=== PATIENT | female | born 1970 | race Caucasian/White ===

== ENCOUNTER 2016-05-19 19:12 | Inpatient (IN) | payer BC ==
[2016-05-19 20:48] LABS: BASOPHIL 0.3 % (0-2.0); EOSINOPHIL 1.2 % (0-4.5); MCH 34.6 pg (25.7-33.7); MEAN PLT VOLUME 8.1 fl (7.5-11.1); PLATELET COUNT 442 K/MM3 (134-434); WHITE BLOOD COUNT 4.3 K/mm3 (4.0-10.0)
[2016-05-19 21:13] LABS: ALBUMIN 3.8 g/dl (3.4-5.0); BILIRUBIN,TOTAL 0.4 mg/dL (0.2-1.0); CALCIUM 9.2 mg/dL (8.5-10.1); TOT PROT 8.5 g/dl (6.4-8.2)
--- NOTE | 2016-05-19 21:14 | PDOC ---
History of Present Illness - General Chief Complaint: Syncope/Near Syncope Stated Complaint: SYNCOPE Time Seen by Provider: 05/19/16 19:32 History Source: Patient Exam Limitations: No Limitations - History of Present Illness Initial Comments: 05/19/16 21:05 46yo Female patient with metastatic breast-brain CA presents to ED c/o syncope, shortness of breath today. Patient states having cold symptoms and not feeling well. She took Robitussin and was getting ready for bed with she felt "funny" feeling in her stomach and "passed out." She states she fell forward but did not hit her head, and she could hear herself thinking but unsure of what. Prior to this episode patient states she had not been sleeping well, and was given prescription for Ambien from Dr. Pascual (Oncology) which she took last night and slept fine. She denies CP, Abd pain, back pain, fever, cough, congestion, rash, confusion, or any other complaint at this time. ---Dr. Pascual (Oncology) ---Dr. Fuller (Pulmonary) Chem-drugs: IBrance and Letrozole. Past History - Travel Traveled outside of the country in the last 30 days: No Close contact w/someone who was outside of country & ill: No - Past Medical History Allergies/Adverse Reactions: Allergies Allergy/AdvReac Type Severity Reaction Status Date / Time No Known Drug Allergies Allergy Verified 06/08/13 17:11 Home Medications: Ambulatory Orders Anastrozole [Arimidex -] 1 mg PO DAILY 08/24/12 Cholecalciferol (Vitamin D3) [Vitamin D] 400 unit PO DAILY 11/07/12 Metformin HCl [Glucophage] 1,000 mg PO BID 11/07/12 Anemia: No Asthma: No Cancer: Yes (Hx of breast cancer 2008 RIGHT,STAGE 1 LEFT BREAST 2010) Cardiac Disorders: No CVA: No COPD: No CHF: No Dementia: No Diabetes: Yes (05/23) GI Disorders: No Disorders: No HTN: No Hypercholesterolemia: No Liver Disease: No Seizures: No Thyroid Disease: No - Surgical History Abdominal Surgery: No Appendectomy: No Cardiac Surgery: No Cholecystectomy: No Lung Surgery: No Neurologic Surgery: No Orthopedic Surgery: Yes - Immunization History Td Vaccination: Yes Immunization Up to Date: Yes - Psycho/Social/Smoking Cessation Hx Anxiety: No Suicidal Ideation: No Smoking Status: No Smoking History: Unknown if ever smoked Have you smoked in the past 12 months: No Number of Cigarettes Smoked Daily: 0 Cigars Per Day: 0 Information on smoking cessation initiated: No Hx Alcohol Use: No Drug/Substance Use Hx: No Substance Use Type: None Hx Substance Use Treatment: No Review of Systems - Review of Systems Able to Perform ROS?: Yes Is the patient limited Syriac proficient: No Constitutional: No: Chills, Fever Respiratory: Yes: Shortness of Breath. No: Cough, Orthopnea, Stridor, Wheezing , Productive cough, Hemoptysis Cardiac (ROS): Yes: Syncope. No: Chest Pain, Edema, Irregular Heart Rate, Lightheadedness, Palpitations, Chest Tightness ABD/GI: No: Constipated, Diarrhea, Nausea, Poor Appetite, Poor Fluid Intake, Rectal Bleeding, Vomiting, Abdominal cramping, Tarry Stools : No: Burning, Dysuria, Discharge, Frequency, Flank Pain, Hematuria, Pain, Urgency Musculoskeletal: No: Back Pain Integumentary: No: Bruising, Erythema, Rash Neurological: No: Headache, Numbness, Paresthesia, Seizure, Tingling, Tremors, Weakness, Ataxia, Dizziness Psychiatric: Yes: Stressors, Sleep Pattern Change. No: Mood Swings Hematologic/Lymphatic: No: Blood Clots, Easy Bleeding, Easy Bruising All Other Systems: Reviewed and Negative *Physical Exam - Vital Signs Last Vital Signs Temp Pulse Resp BP Pulse Ox 98.8 F 114 H 26 H 125/85 92 L 05/19/16 19:59 05/19/16 19:59 05/19/16 19:59 05/19/16 19:59 05/19/16 19:59 - Physical Exam General Appearance: Yes: Mild Distress, Thin. No: Nourished, Apparent Distress HEENT: positive: EOMI, BRADY, Normal ENT Inspection, Normal Voice, Symmetrical, TMs Normal, Pharynx Normal. negative: Tonsillar Exudate, Tonsillar Erythema, Rhinorrhea, TM Bulging, TM Dull, TM Erythema Neck: positive: Trachea midline, Supple. negative: Stridor, Lymphadenopathy (R) , Lymphadenopathy (L) Respiratory/Chest: positive: Lungs Clear, Decreased Breath Sounds. negative: Chest Tender, Respiratory Distress, Accessory Muscle Use, Labored Respiration, Rapid RR Cardiovascular: positive: Regular Rhythm, Regular Rate. negative: Edema, JVD, Murmur Gastrointestinal/Abdominal: positive: Normal Bowel Sounds, Soft. negative: Increased Bowel Sounds, Guarding, Rebound, Tenderness Musculoskeletal: positive: Normal Inspection. negative: CVA Tenderness Extremity: positive: Normal Capillary Refill, Normal Inspection, Normal Range of Motion. negative: Pedal Edema, Swelling Integumentary: positive: Normal Color, Dry, Warm. negative: Rash, Swelling Neurologic: positive: stage manager II-XII NML intact, Fully Oriented, Alert, Normal Mood/ Affect, Normal Response, Motor Strength 08/14 ED Treatment Course - LABORATORY CBC & Chemistry Diagram: 05/19/16 20:40 05/19/16 20:40 - ADDITIONAL ORDERS Additional order review: 05/19/16 20:40 RBC 3.44 L MCV 102.0 H MCHC 34.0 RDW 17.0 H D MPV 8.1 Neutrophils % 88.0 H D Lymphocytes % 7.4 L D Monocytes % 3.1 L Eosinophils % 1.2 Basophils % 0.3 *DC/Admit/Observation/Transfer Diagnosis at time of Disposition: Pleural effusion, Pericardial effusion, Hypoxia - Discharge Dispostion Condition at time of disposition: Fair Admit: Yes
[2016-05-19] MEDS ORDERED: AZITHROMYCIN IVPB 500 MG in DEXTROSE 5%-WATER - 250 ML IVPB ONE (23:25)
[2016-05-19 23:29] LABS: ARTERIAL BLD GAS O2 SATURATION 90.6 % (90-98.9); ARTERIAL BLOOD GAS BASE EXCESS -0.8 meq/l (-2-2); ARTERIAL BLOOD GAS HCO3 21.8 meq/L (22-26); ARTERIAL BLOOD GAS pH 7.47 (7.35-7.45)
[2016-05-19 23:30] LABS: ALLENS TEST POSITIVE; ART PUNCT SITE LEFT RADIAL; LPM/O2% 21%; METHEMOGLOBIN 1.4 % (0.4-1.5); PT. ON O2? NO; TYPE OF O2 ROOM AIR
[2016-05-19 23:32] LABS: ARTERIAL BLOOD GAS PO2 58.9 mmHg (80-100)
[2016-05-19] MEDS: LEVOFLOXACIN 750 MG IVPB 150 ML IVPB ONE (23:45)
[2016-05-20] MEDS ORDERED: LEVOFLOXACIN 500 MG IVPB 100 ML IVPB ONE (00:06)
[2016-05-20] MEDS ORDERED: LEVOFLOXACIN 750 MG IVPB 150 ML IVPB ONE ×2 (00:08→23:25)
--- NOTE | 2016-05-20 01:00 | PN ---
<Natalya Valdez - Last Filed: 05/20/16 00:59> Teaching Attending Note Name of Resident: Juliana Shaikh <Ludwig Suarez - Last Filed: 05/20/16 04:49> Teaching Attending Note ATTENDING PHYSICIAN STATEMENT I saw and evaluated the patient. I reviewed the resident's note and discussed the case with the resident. I agree with the resident's findings and plan as documented. SUBJECTIVE: 46 year old female presented to ED with complaint of dyspnea, cough , and insomnia which has progressively gotten worse for the past week. Today patient had syncopal episode with LOC for 2 minutes and no head trauma reported. Patient has indwelling chest tube placed for recurrent pleural effusion and reports draining 10cc last week. Patient reported decreased frequency in draining from every 7 days to 10 days. Patient also has history of pericardial effusion which was drained last year and on last evaluation was reported to have no effusions. PMH: Diabetes, breast cancer with metastasis to brain and recurrent pleural effusions with indwelling chest tube, Surgical history: Mastectomy, lymphadenectomy, 2004 PCP: Dr. Nelson Heavy Equipment Diesel Mechanic: Dr. Fuller Primary Hospital: [facility] Oncologist: Dr. Pascual OBJECTIVE: Vital Signs: Last Vital Signs Temp Pulse Resp BP Pulse Ox 98.5 F 113 H 26 H 108/79 98 05/20/16 00:38 05/20/16 02:35 05/20/16 00:38 05/20/16 02:35 05/20/16 02:35 GENERAL: Awake, alert, and fully oriented, in mild distress HEENT: Normocephalic, Thinning of hair. Atraumatic. PERRLA, EOMI. Moist mucosa. No JVD. LUNGS: Left sided chest tube. No distress, speaks full sentences, clear to auscultation bilaterally HEART: Regular rate and rhythm, normal S1 and S2, no murmurs, slight rub, no gallops, peripheral pulses normal and equal bilaterally. ABDOMEN: Soft, nontender, normoactive bowel sounds. No guarding, no rebound. No masses EXTREMITIES: Normal inspection, Normal range of motion, no edema. No clubbing or cyanosis. NEUROLOGICAL: Cranial nerves II through XII grossly intact. Normal speech, normal gait, no focal sensorimotor deficits SKIN: Warm, Dry, normal turgor, erythema of philtrum Labs: CBCD WBC 4.3 K/mm3 (4.0-10.0) 05/19/16 20:40 RBC 3.44 M/mm3 (3.60-5.2) L 05/19/16 20:40 Hgb 11.9 GM/dL (10.7-15.3) 05/19/16 20:40 Hct 35.1 % (32.4-45.2) 05/19/16 20:40 MCV 102.0 fl (80-96) H 05/19/16 20:40 MCHC 34.0 g/dl (32.0-36.0) 05/19/16 20:40 RDW 17.0 % (11.6-15.6) H D 05/19/16 20:40 Plt Count 442 K/MM3 (134-434) H D 05/19/16 20:40 MPV 8.1 fl (7.5-11.1) 05/19/16 20:40 CMP Sodium 138 mmol/L (136-145) 05/19/16 20:40 Potassium 4.2 mmol/L (3.5-5.1) 05/19/16 20:40 Chloride 103 mmol/L (98-107) 05/19/16 20:40 Carbon Dioxide 24 mmol/L (21-32) 05/19/16 20:40 Anion Gap 11 (8-16) 05/19/16 20:40 BUN 18 mg/dL (7-18) D 05/19/16 20:40 Creatinine 1.0 mg/dL (0.55-1.02) D 05/19/16 20:40 Creat Clearance w eGFR 59.96 (>60) 05/19/16 20:40 Calcium 9.2 mg/dL (8.5-10.1) 05/19/16 20:40 Total Bilirubin 0.4 mg/dL (0.2-1.0) 05/19/16 20:40 AST 46 U/L (15-37) H D 05/19/16 20:40 ALT 32 U/L (12-78) D 05/19/16 20:40 Alkaline Phosphatase 91 U/L (45-117) 05/19/16 20:40 Total Protein 8.5 g/dl (6.4-8.2) H 05/19/16 20:40 Albumin 3.8 g/dl (3.4-5.0) 05/19/16 20:[address] Impression: Positive for a combination of infiltrates and atelectasis in the right lower lobe and right middle lobe. There is also a moderate size right pleural effusion. Some of the pleural fluid is higher density than simple transudate and could be complex (infectious/purulent? Less likely hemorrhagic since there is no history of trauma). Some of the fluid is loculated. There is also a moderate sized left pleural effusion with some loculation. There is a chest tube draining this collection. There is infiltrate and atelectasis at the left lung base. There is also a pericardial effusion up to 1.2 cm thick. There is elevation of the right hemidiaphragm. If more recent prior scans can be transmitted, I can perform a comparative interpretation and determine if there has been progression or improvement. Please also correlate with patient history. (History transmitted is "hypoxia".)
[2016-05-20] MEDS ORDERED: AZITHROMYCIN IVPB 250 ML IVPB ONE (01:34)
--- NOTE | 2016-05-20 02:20 | MSN ---
Admitting History and Physical - Primary Care Physician PCP: Dr. Nelson - Admission Chief Complaint: Syncope and SOB History of Present Illness: Pt. is a 46 YO F with PMH of Breast Cancer metastasized to the brain, and DMII, she presented to the ED after a syncopal episode and SOB. The Patient started feeling some "Cold-like" symptoms with a non productive cough earlier in the morning, she was trying to go to bed early after taking a dose of Robitussin, when she got a strange feeling in her stomach. She did not feel nauseous or as though she was having an upset stomach. Shortly after the feeling she felt light headed and fainted in to the bed. She was unconscious for 2 min before she regained conciousness, at which time she felt depressed that her 11 year old daughter saw her "helpless." She has not had anything like this happen to her before. She has had SOB since the beginning of the winter. He currently has a chest tube in her left pleura, that drains "yellowish and occasionally blood-tinged fluid." She denies any CP, weakness, pain, fever, congestion, rash , confusion, NVD, Constp, changes in vision, nor changes in urination. History Source: Patient, Family Member Limitations to Obtaining History: No Limitations - Past Medical History ...LMP: 05/13/09 Heme/Onc: Yes: Cancer (met. 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 [place]. Letrozole. Biotin Family Disease History - Family Disease History Family Disease History: Diabetes: Father Review of Systems - Review of Systems Constitutional: reports: No Symptoms. denies: Chills, Diaphoresis, Fever, Night Sweats, Weakness Eyes: reports: No Symptoms. denies: Blind Spots, Blurred Vision, Double Vision HENT: reports: No Symptoms Neck: reports: No Symptoms Cardiovascular: reports: No Symptoms Respiratory: reports: Cough (nonproductive), SOB (exacerbated by cold) Gastrointestinal: reports: Other (Abdominal discomfort) Genitourinary: reports: No Symptoms Breasts: reports: See HPI, Other (Metastatic Breast CA) Integumentary: reports: No Symptoms Neurological: reports: Syncope Endocrine: reports: No Symptoms Hematology/Lymphatic: reports: No Symptoms Psychiatric: reports: Altered Sleep Pattern, Anxiety, Depression, Panic Physical Examination Vital Signs: Vital Signs Temperature 98.5 F 05/20/16 00:38 Pulse Rate 120 H 05/20/16 00:38 Respiratory Rate 26 H 05/20/16 00:38 Blood Pressure 98/57 05/20/16 00:38 O2 Sat by Pulse Oximetry (%) 95 05/20/16 00:38 Constitutional: Yes: Well Nourished, Anxious, Mild Distress Eyes: Yes: WNL, Conjunctiva Clear, EOM Intact HENT: Yes: WNL, Atraumatic, Normocephalic Cardiovascular: Yes: Tachycardia, S1, S2. No: JVD, Gallop, Murmur, Rub Respiratory: Yes: Diminished (left side), Rales (bilaterally) Gastrointestinal: Yes: WNL, Normal Bowel Sounds, Soft Breast(s): Yes: Other (See HPI) Musculoskeletal: Yes: WNL Extremities: Yes: WNL Edema: No Peripheral Pulses WNL: Yes Integumentary: Yes: WNL Neurological: Yes: WNL, Alert, Oriented ...Motor Strength: WNL Psychiatric: Yes: Alert, Oriented, Other (Possible Depression) Labs: CBC, BMP 05/19/16 20:40 05/19/16 20:40 Assessment/Plan Pt. is a 46 YO F with PMH of Breast Cancer metastasized to the brain, and DMII, she presented to the ED after a syncopal episode and SOB. Syncope/Lightheadedness -CXR-Bilateral Pleural effusion -CT Head -EKG-Tachycardic -IVF-100cc/hr -Cont. O2 venti mask Diabetes -SSI -Hold metformin Possible Depression -Depression Screen -Social Work -Psych consult -Grief Stress Test Technician
--- NOTE | 2016-05-20 04:39 | HP ---
Addendum entered and electronically signed by Juliana Shaikh RES 05/20/16 07 :20: Continue Anastrozole 1mg PO Daily (Home meds) Addendum entered and electronically signed by Juliana Shaikh RES 05/20/16 06 :36: CURB 65 score-0 Addendum entered and electronically signed by Juliana Shaikh RES 05/20/16 06 :30: Calculated PSI Index 75 points Original Note: CHIEF COMPLAINT: passed out and SOB PCP: HISTORY OF PRESENT ILLNESS: 46 year old female presented to the ED via EMS after passing out for almost 2 mins this evening. A/c to the patient, she was on her bed, had dry cough, took Robitussin, then started having funny sensation in her abdomen, couldn't focus her eyes and suddenly she passed out, moved forward and landed on the pillow but didn't hit her head. Never had this before. Patient said she could hear herself breathing while she was unconscious, was thinking her 11 year old daughter would get traumatized to see her in that state and then heard 911 being called. Patient said she has had SOB on/off since early winter and dry cough. Has had pleural effusion since a year due to metastatic breast cancer, a chest tube placed on the left side since a year. Took out 20 cc last week, fluid was yellowish in color. Since the volume is getting smaller, takes the fluid out once in 10days. Also had a h/o pericardial effusion which resolved. Denies chest pain, palpitations, headache, fever, chills, rigors, sweating, abdominal pain, nausea or vomiting. Bowel/Bladder habit normal. Sleep/Appetite normal. PCP:- @ [facility] Dr. Leslie Pascual (Oncology) Dr. 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 PAST SURGICAL HISTORY: Mastectomy, lumpectomy, in 2004, left sided chest tube Social History: Smoking: Never smoked Alcohol: Never took alcohol Drugs: No use of illicit drugs. Family History: Father-DM Allergies No Known Drug Allergies Allergy (Verified 06/08/13 17:11) HOME MEDICATIONS: Home Medications Medication Instructions Recorded Anastrozole [Arimidex -] 1 mg PO DAILY 08/24/12 Cholecalciferol (Vitamin D3) 400 unit PO DAILY 11/07/12 [Vitamin D] Metformin HCl [Glucophage] 1,000 mg PO BID 11/07/12 REVIEW OF SYSTEMS CONSTITUTIONAL: Present: Generalized weakness Absent: fever, chills, diaphoresis, malaise, loss of appetite, weight change HEENT: Absent: rhinorrhea, nasal congestion, throat pain, throat swelling, difficulty swallowing, mouth swelling, ear pain, eye pain, visual changes CARDIOVASCULAR: Absent: chest pain, syncope, palpitations, irregular heart rate, lightheadedness , peripheral edema RESPIRATORY: Present: Cough, shortness of breath, dyspnea with exertion Absent: cough, orthopnea, wheezing, stridor, hemoptysis GASTROINTESTINAL: Absent: abdominal pain, abdominal distension, nausea, vomiting, diarrhea, constipation, melena, hematochezia GENITOURINARY: Absent: dysuria, frequency, urgency, hesitancy, hematuria, flank pain, genital pain MUSCULOSKELETAL: Absent: myalgia, arthralgia, joint swelling, back pain, neck pain SKIN: Absent: rash, itching, pallor HEMATOLOGIC/IMMUNOLOGIC: Absent: easy bleeding, easy bruising, lymphadenopathy, frequent infections ENDOCRINE: Absent: unexplained weight gain, unexplained weight loss, heat intolerance, cold intolerance NEUROLOGIC: Present: Recent Syncope Absent: headache, focal weakness or paresthesias, dizziness, unsteady gait, seizure, mental status changes, bladder or bowel incontinence PSYCHIATRIC: Absent: anxiety, depression, suicidal or homicidal ideation, hallucinations. PHYSICAL EXAMINATION Vital Signs - 24 hr 05/19/16 05/19/16 05/20/16 19:59 21:29 00:38 Temperature 98.8 F 98.5 F Pulse Rate 114 H Pulse Rate [ 120 H Right Radial] Respiratory 26 H 26 H Rate Blood Pressure 125/85 Blood Pressure 98/57 [Left Arm] O2 Sat by Pulse 92 L 92 L 95 Oximetry (%) 05/20/16 02:35 Temperature Pulse Rate Pulse Rate [ 113 H Right Radial] Respiratory Rate Blood Pressure Blood Pressure 108/79 [Left Arm] O2 Sat by Pulse 98 Oximetry (%) GENERAL: Young female lying comfortably in bed, Awake, alert, and fully oriented , in mild respiratory distress. HEAD: Normal with no signs of trauma. EYES:EOM intact, no pallor or icterus. EARS, NOSE, THROAT: Ears normal. Moist mucous membranes. NECK: Normal range of motion, supple without lymphadenopathy, JVD, or masses. LUNGS: Chest tube drainage placed on the left side, area looks clean, no erythema or discharge at the insertion site, Decrease breath sounds bilaterally Right>left; B/L bibasilar crackles, no wheeze. HEART: Regular rate and rhythm, normal S1 and S2 without murmur. ABDOMEN: Soft, nontender, not distended, normoactive bowel sounds, no guarding, no rebound, no masses. No hepatomegaly or splenomegaly. MUSCULOSKELETAL: Normal range of motion at all joints. No bony deformities or tenderness. No CVA tenderness. UPPER EXTREMITIES: 2+ pulses, warm, well-perfused. No cyanosis. No clubbing. No peripheral edema. LOWER EXTREMITIES: 2+ pulses, warm, well-perfused. No calf tenderness. No peripheral edema. NEUROLOGICAL: Cranial nerves II-XII intact. Normal speech. Normal gait. PSYCHIATRIC: Cooperative. Good eye contact. Appropriate mood and affect. SKIN: Warm, dry, normal turgor, no rashes or lesions noted. Laboratory Results - last 24 hr 05/19/16 05/19/16 05/19/16 20:40 20:40 23:14 WBC 4.3 RBC 3.44 L Hgb 11.9 Hct 35.1 MCV 102.0 H MCHC 34.0 RDW 17.0 H D Plt Count 442 H D MPV 8.1 Neutrophils % 88.0 H D Lymphocytes % 7.4 L D Monocytes % 3.1 L Eosinophils % 1.2 Basophils % 0.3 Puncture Site Left radial ABG pH 7.47 H ABG pCO2 at Pt Temp 30.7 L ABG pO2 at Pt Temp 58.9 L ABG HCO3 21.8 L ABG O2 Sat (Measured) 90.6 ABG O2 Content 13.1 L ABG Base Excess -0.8 Soham Test Positive Carboxyhemoglobin 1.5 Methemoglobin 1.4 O2 Delivery Device Room air Oxygen Flow Rate 21% Sodium 138 Potassium 4.2 Chloride 103 Carbon Dioxide 24 Anion Gap 11 BUN 18 D Creatinine 1.0 D Creat Clearance w eGFR 59.96 Random Glucose 164 H Calcium 9.2 Total Bilirubin 0.4 AST 46 H D ALT 32 D Alkaline Phosphatase 91 Total Protein 8.5 H Albumin 3.[address] Impression: Positive for a combination of infiltrates and atelectasis in the right lower lobe and right middle lobe. There is also a moderate size right pleural effusion. Some of the pleural fluid is higher density than simple transudate and could be complex (infectious/purulent? Less likely hemorrhagic since there is no history of trauma). Some of the fluid is loculated. There is also a moderate sized left pleural effusion with some loculation. There is a chest tube draining this collection. There is infiltrate and atelectasis at the left lung base. There is also a pericardial effusion up to 1.2 cm thick. There is elevation of the right hemidiaphragm. ASSESSMENT/PLAN: 46 year old female with past medical history of metastatic breast cancer s/p lumpectomy and mastectomy,recurrent pleural effusions with indwelling chest tube , Diabetes Mellitus presented to the ED via EMS after passing out for almost 2 minutes this evening. # Vasovagal syncope Patient presented with syncope for almost 2 minutes yesterday evening. Patient has a h/o breast cancer mets to brain CT head done, report pending No similar symptoms noted in the ED Neurological exam normal Monitor symptoms If new symptoms appear, would consider neurological consult. # Hypoxic respiratory failure most likely due to HAP. Pleural effusion and pericardial effusion. Has h/o Metastatic breast cancer-s/p lumpectomy and mastectomy Patient has had SOB on/off since early winter, has left sided chest tube placed since a year, gets fluid removed once every 10days, last removal was 20cc last week. On arrival, afebrile, tachycardic 114, hyperventilating to 26, low saturation 92% ABG shows hypoxic/ respiratory alkalosis CT scan showing infiltrate, atelectasis and effusion, CTreport mentioned above Had h/o pericardial effusion which resolved. Was unaware of the new pericardial effusion. Would consider Lasix if SOB worsens Oxygen PRN IV Vancomycin/ IV Zosyn one time dose ordered ID consult placed Pulmonary consult placed Oncology consult placed # Diabetes Mellitus Insulin sliding scale BGM Monitor hypoglycemic episodes # FEN No IV fluids Electrolytes to be repeated Diabetic diet # Prophylaxis For DVT- On Enoxaparin 40sq daily For GI- Not indicated # Code Status- Full code # Dispo: Admitted in Med-Surg. Patient would like to go to [facility] for further treatment as her Pulmonogist/Oncologist are in [facility]. Patient as an insurance from [facility] so she cannot get reimbursement if she gets treatment from other hospitals as per the patient. Called [facility] and spoke to grounds and nursery specialist who suggested ED to ED transfer. Called ED doctor but they said we have to contact Oncology attending. Hence kindly try calling [facility] today or talk with the patient regarding further treatment. Illness, Investigation and Plan of care explained to the patient. She verbalized understanding. Case seen and discussed with Dr. Valdez. Visit type - Emergency Visit Emergency Visit: Yes ED Registration Date: 05/20/16 Care time: The patient presented to the Emergency Department on the above date and was hospitalized for further evaluation of their emergent condition. - New Patient This patient is new to me today: Yes Date on this admission: 05/20/16 - Critical Care Critical Care patient: No
[2016-05-20] MEDS: LEVOFLOXACIN 750 MG IVPB 150 ML IVPB ONE (04:54)
[2016-05-20] MEDS ORDERED: VANCOMYCIN 1,000 MG in DEXTROSE 5%-WATER - 250 ML IVPB ONE (05:21)
[2016-05-20] MEDS ORDERED: PIPERACILLIN/TAZOB 3.375 GM/50 ML PRE-DOCKED IVPB ONE (05:21)
[2016-05-20] MEDS ORDERED: PIPERACILLIN/TAZOB 3.375 GM 50 ML IVPB ONE (06:09)
[2016-05-20] MEDS ORDERED: VANCOMYCIN 1 GRAM (PRE-DOCKED) 250 ML IVPB ONE (06:55)
[2016-05-20 08:04] LABS: BASOPHIL 0.6 % (0-2.0); EOSINOPHIL 0.9 % (0-4.5); MCH 34.3 pg (25.7-33.7); MCHC 33.6 g/dl (32.0-36.0); MEAN PLT VOLUME 7.5 fl (7.5-11.1); NEUTROPHILS 72.2 % (42.8-82.8); PLATELET COUNT 386 K/MM3 (134-434); WHITE BLOOD COUNT 2.5 K/mm3 (4.0-10.0)
[2016-05-20 08:39] LABS: ALBUMIN 3.1 g/dl (3.4-5.0); BILIRUBIN,TOTAL 0.9 mg/dL (0.2-1.0); CALCIUM 8.6 mg/dL (8.5-10.1); MAGNESIUM 2.1 mg/dL (1.8-2.4); PHOSPHOROUS 3.3 mg/dL (2.5-4.9); TOT PROT 7.3 g/dl (6.4-8.2)
[2016-05-20 09:20] LABS: ANISOCYTOSIS 1+; PLATELET ESTIMATE ADEQUATE (NORMAL)
[2016-05-20] MEDS ORDERED: ENOXAPARIN NA (PORCINE) 40 MG/0.4 ML DISP.SYRIN SQ ONE (09:33)
[2016-05-20] MEDS: ENOXAPARIN NA (PORCINE) 40 MG/0.4 ML DISP.SYRIN SQ SCH (09:48)
[2016-05-20] MEDS: CHOLECALCIFEROL (VITAMIN D3) 400 UNIT TABLET (FP) PO SCH (09:48)
[2016-05-20] MEDS ORDERED: ANASTROZOLE 1 MG TABLET PO SCH (10:00)
[2016-05-20] MEDS ORDERED: INSULIN REGULAR HUMAN 100 UNITS/ML *VIAL ONE (10:22)
[2016-05-20] MEDS: INSULIN SLIDING SCALE (NOVOLOG) 1 VIAL SQ SCH ×3 (10:35→22:39)
[2016-05-20 11:44] VITALS: BMI 25.4
--- NOTE | 2016-05-20 13:37 | EKG ---
Test Reason : Blood Pressure : / mmHG Vent. Rate : 115 BPM Atrial Rate : 115 BPM P-R Int : 184 ms QRS Dur : 068 ms QT Int : 304 ms P-R-T Axes : 044 079 110 degrees QTc Int : 420 ms SINUS TACHYCARDIA LOW VOLTAGE QRS NONSPECIFIC T WAVE ABNORMALITY ABNORMAL ECG WHEN COMPARED WITH ECG OF 08-JUN-2013 19:12, RSR' PATTERN IN V1 IS NO LONGER PRESENT MINIMAL CRITERIA FOR INFERIOR INFARCT ARE NO LONGER PRESENT Confirmed by JONAH WILSON MD ([id number]) on 05/20/2016 1:37:07 PM Referred By: Confirmed By:JONAH WILSON MD
--- NOTE | 2016-05-20 14:38 | PN ---
Teaching Attending Note Name of Resident: David Michelle ATTENDING PHYSICIAN STATEMENT I saw and evaluated the patient. I reviewed the resident's note and discussed the case with the resident. I agree with the resident's findings and plan as documented. SUBJECTIVE: no fever or chills, feels SOB with ambulation only, no palpitations , reports feeling weird in her stomach before everything turned black and she passed out in bed . no one witnessed seizure like activity as daughter ran to get help. when she woke up she recognized surrounding . denies any CP , palpitations, or visual changes before the episode . no similar episodes in past OBJECTIVE: Last Vital Signs Temp Pulse Resp BP Pulse Ox 98.9 F 110 H 18 105/68 98 05/20/16 08:05 05/20/16 11:37 05/20/16 11:37 05/20/16 11:37 05/20/16 08:05 NAD , AAOX3 CV: RRR, no MRG Lungs: decreased breath sounds at R base , minimal crackles at L base . L chest tube in pace . Ext: No edema over b/l LE Neuro: no facial droop, EOMI, round equal pupils , reactive to light , uvula at mid line , tongue at mid line strength : 5/5 in upper and lower ext proximally and distally , sensation to light touch intact. reflexes : 2+ knee jerk and biceps b/l . Breast exam: R mastectomy with scarred R breast bed, no LAP in R axilla . L breast with no masses or discharge from nipple . L axilla with surgical scar with no LAP . ASSESSMENT AND PLAN: 46 y/o lady with h/o DM , breast cancer s/p R mastectomy , L lumpectomy ,brain mets s/p gamma knife , recurrent pleural effusions s/p L chest tube, and pericardial effusion ,, who presented with syncopal episode. 1- Syncope, not clear on etiology, vasovagal vs seizure. Arrhythmias still in picture. Although she has pericardial effusion, I don't believe it is the etiology behind that. in the setting of metastatic breast cancer, and h/o brain Mets , need to r/o brain mets ( pt states last MRI in Mar.27 neg ) - check MRI of brain w/wo myrtle - check echo to evaluate actual size of effusion and any signs of tamponade . will check pulsus paradoxus . Bp is stable and she has no JVD - place on tele - check EKG 2- Uncontrolled Dm , only on metformin home.. now GLC in 400s. SSI , hold metformin repeat sugar 3- SOB , hypoxia , resolved . now 98 % on RA. Chest CT scan with R pleural effusion , and atelectasis with scarring in lungs maria teresa right . I wonder if these findings are due to lymphangitic spread of tumor VS scarring from Radiation . no old imaging to review. Pneumonia is low on my list . - hold off abx , pending ID consult - no suspicion for PE at this point 4- Breast cancer s/p R mastectomy , L lumpectomy and MEts to brain s/p gamma knife . Onc consult placed 5- Dispo : [facility]LOC pt requested transfer to [facility], will call transfer center .
--- NOTE | 2016-05-20 15:02 | CON.PULM ---
Consult Consult Specialty:: PULMONARY Referred by:: ANAYELI Reason for Consultation:: HYPOXEMIA/SOB/PLEURAL EFFUSION - History of Present Illness Chief Complaint: SOB/SYNCOPE/PLEUREX LEFT PLEURAL SPACE History of Present Illness: 46yo Female patient with metastatic breast-brain CA presents to ED c/o syncope, shortness of breath today. Patient states having cold symptoms and not feeling well. She took Robitussin and was getting ready for bed with she felt "funny" feeling in her stomach and "passed out." She states she fell forward but did not hit her head. Prior to this episode patient states she had not been sleeping well, and was given prescription for Ambien from Dr. Pascual (Oncology ) which she took the night prior and slept fine. She was re-admitted to [facility] in early April due to pericardial fluid/pleural effusion. 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 No: AFIB, CHF Pulmonary: Yes: O2 Dependent (was told she needed o2 but refused). No: Asthma, COPD Gastrointestinal: No: Cancer Hepatobiliary: No: Cirrhosis Renal/: No: Renal Failure ...LMP: 05/13/09 ...: No Heme/Onc: Yes: Anemia, Current Chemotherapy Infectious Disease: No: AIDS Psych: No: Addictions Musculoskeletal: No: Bursitis Rheumatology: No: Fibromyalgia ENT: No: Allergic Rhinitis Endocrine: Yes: Diabetes Mellitus (type II) - Past Surgical History Past Surgical History: Yes: Breast Biopsy, , Mastectomy - Alcohol/Substance Use Hx Alcohol Use: No History of Substance Use: reports: None. 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 Medications - Allergies Allergies/Adverse Reactions: Allergies Allergy/AdvReac Type Severity Reaction Status Date / Time No Known Drug Allergies Allergy Verified 06/08/13 17:11 - Home Medications Home Medications: Ambulatory Orders Anastrozole [Arimidex -] 1 mg PO DAILY 08/24/12 Cholecalciferol (Vitamin D3) [Vitamin D] 400 unit PO DAILY 11/07/12 Metformin HCl [Glucophage] 1,000 mg PO BID 11/07/12 Family Disease History - Family Disease History Family Disease History: Diabetes: Father Review of Systems - Review of Systems Constitutional: denies: Chills, Fever, Night Sweats Eyes: denies: Blind Spots HENT: denies: Difficult Swallowing Neck: denies: Decreased ROM Cardiovascular: denies: Chest Pain Respiratory: reports: Cough, Exercise Intolerance, SOB on Exertion. denies: Hemoptysis, Wheezing Gastrointestinal: reports: Abdominal Pain (had abd discomfort prior to admission ) Genitourinary: reports: No Symptoms Breasts: denies: Other (mastectomy) Musculoskeletal: reports: No Symptoms Integumentary: reports: No Symptoms Neurological: reports: Syncope Endocrine: reports: No Symptoms Hematology/Lymphatic: reports: No Symptoms Psychiatric: reports: No Symptoms Physical Exam Vital Sings: Vital Signs Temperature 98.1 F 05/20/16 14:32 Pulse Rate 100 H 05/20/16 14:32 Respiratory Rate 18 05/20/16 14:32 Blood Pressure 100/60 05/20/16 14:32 O2 Sat by Pulse Oximetry (%) 96 05/20/16 14:32 Constitutional: Yes: Calm Eyes: Yes: EOM Intact HENT: Yes: Normocephalic Neck: Yes: Trachea Midline Cardiovascular: Yes: Regular Rate and Rhythm Respiratory: Yes: Diminished (bibasilar/left pleurex catheter in place) ...Breath Sounds: LLL Diminished, RLL Diminished ...Inspection: Yes: Other (left mastectomy) Gastrointestinal: Yes: Soft Extremities: No: Calf Tenderness Edema: No Psychiatric: Yes: Alert Labs: CBC, BMP 05/20/16 07:45 05/20/16 07:45 ABG Results ABG pH 7.47 (7.35-7.45) H 05/19/16 23:14 ABG pCO2 at Pt Temp 30.7 mmHg (35-45) L 05/19/16 23:14 ABG pO2 at Pt Temp 58.9 mmHg (80-100) L 05/19/16 23:14 ABG HCO3 21.8 meq/L (22-26) L 05/19/16 23:14 ABG O2 Sat (Measured) 90.6 % (90-98.9) 05/19/16 23:14 ABG O2 Content 13.1 % vol (15-22) L 05/19/16 23:14 ABG Base Excess -0.8 meq/l (-2-2) 05/19/16 23:14 Imaging - Results Chest X-ray: Image Reviewed Cat Scan: Image Reviewed Assessment/Plan RIGHT BREAST CA DXED 2008 S/P MASTECTOMY, CHEMOTX/RT LEFT BREAST CA DXED 2011 S/P LUMPECTOMY,CHEMOTX/RT LEFT BREAST RECURRENCE 2015 WITH PLEURAL/PERICARDIAL EFFUSION/BRAIN METS WITH CERVICAL NODE INVOLVEMENT S/P LEFT PLEUREX PLACED ONLETROZOLE/IBRANCE H/O DM ON METFORMIN ADMITTED WITH ? SYNCOPE FOUND TO HAVE HYPONATREMIA/B/L PLEURAL EFFUSIONS AND EXTENSIVE INFILTRATE WITH AIR-BRONCHOGRAMS ON RIGHT WITH ELEVATED TYLER DIAPHRAGM O2 SUPPLEMENTATION/PANCULTURE/INFLUENZA SWAB/EMPIRIC ANTIBIOTICS/BRONCHODILATORS / CORRECT NA/WILL LIKELY NEED HOME O2 CHECK ECHO/GLYCEMIC CONTROL/INCENTIVE SPIROMETRY WILL FOLLOW/PATIENT IS FOLLOWED AT [facility] WITH ONCO/PULMONARY THANK YOU Lisha LORENZ MD
--- NOTE | 2016-05-20 15:30 | PN ---
Physical Exam: SUBJECTIVE: Patient seen and examined. Feels better than when she came in. had URI symptoms for past few days. Denies chest pain, palpitations, chest pain, difficulty breathing. OBJECTIVE: Vital Signs Period Temp Pulse Resp BP Sys/Siddiqui Pulse Ox Last 24 Hr 98.1 F-98.9 F 100-110 18-24 100-112/60-75 96-98 GENERAL: The patient is awake, alert, and fully oriented, in no acute distress. HEAD: Normal with no signs of trauma. EYES: PERRL, extraocular movements intact, sclera anicteric, conjunctiva clear. No ptosis. ENT: Ears normal, nares patent, oropharynx clear without exudates, moist mucous membranes. no facial asymmetry. NECK: Trachea midline, full range of motion, supple. LUNGS: basilar crackles, diminished breath sounds in right and left lung, no wheezing. Chest tube in place on left lower back, no surrounding erythema, tenderness, discharge. HEART: Regular rate and rhythm, S1, S2 without murmur, rub or gallop. ABDOMEN: Soft, nontender, nondistended, normoactive bowel sounds EXTREMITIES: 2+ pulses, warm, well-perfused, no edema. strength 5/5 in shoulders , biceps, triceps, hand manager shift, hip, knee, ankle. sensation intact throughout. NEUROLOGICAL: Cranial nerves II through XII grossly intact. Normal speech PSYCH: Normal mood, normal affect. SKIN: Warm, dry, normal turgor, no rashes or lesions noted Laboratory Results - last 24 hr 05/20/16 05/20/16 05/20/16 07:45 07:45 14:00 WBC 2.5 L D RBC 2.94 L Hgb 10.1 L D Hct 30.0 L MCV 102.0 H MCHC 33.6 RDW 17.0 H Plt Count 386 MPV 7.5 Neutrophils % 72.2 Lymphocytes % 19.8 D Monocytes % 6.5 D Eosinophils % 0.9 Basophils % 0.6 Platelet Estimate Adequate Anisocytosis 1+ Sodium 129 L Potassium 4.2 Chloride 96 L Carbon Dioxide 24 Anion Gap 9 BUN 10 D Creatinine 1.0 Creat Clearance w eGFR 59.96 Random Glucose 442 H* D Hemoglobin A1c % 7.1 H D Calcium 8.6 Phosphorus 3.3 Magnesium 2.1 Total Bilirubin 0.9 D AST 16 D ALT 22 D Alkaline Phosphatase 73 Total Protein 7.3 Albumin 3.1 L Active Medications Generic Name Dose Route Start Last Admin Trade Name Truongq PRN Reason Stop Dose Admin Cholecalciferol 400 unit 05/20/16 10:00 05/20/16 09:48 Vitamin D3 - PO Not Given DAILY [facility] Enoxaparin Sodium 40 mg 05/20/16 10:00 05/20/16 09:48 Lovenox - SQ 40 mg DAILY WILY Administration Insulin Aspart 1 vial 05/20/16 11:00 05/20/16 10:35 Novolog Vial Sliding Scale - SQ 10 units ACHS WILY Administration Protocol Letrozole 2.5 mg 05/20/16 14:15 Femara - PO DAILY WILY ASSESSMENT/PLAN: 46 year old woman with breast cancer with brain mets s/p gamma knife radiation, right mastectomy, hx of pericardial effusion and bilateral lung effusions, NIDDM , admitted to telemetry for syncopal work-up. - low suspicion for pneumonia, however in the differential given immunosuppression patient may not have fever or elevated white count. and lungs parenchyma changes likely from radiation vs metastatic #Syncope - arrhythmia vs vasovagal vs seizure secondary to brain mets vs infectious cause - as per Marisa Baxter([facility]) patient is known to have a stable pericardial effusion, read as mild in their last imaging study. Read as mild- moderate in [facility] CT. - EKG has low voltage QRS, nonspecific T-wave abnormality with tachycardia(vent rate 115) - continuos cardiac monitoring for arrhythmia - Pulsus paradoxus difference in pressure was 12, inconclusive - MRI with/w/o myrtle for brain masses #Pleural effusion/chest CT findings - patient is to remove chest tube next week, drains 20cc every 10 days. - monitor for any increase in drainage or blood, keep site CDI #NIDDM - uncontrolled - hold metformin, maintain on NISS - ACHS BGM - HBa1c 7.1 #Tachycardia - given low BP, pericadial effusion and persistent tachycardia, hx of chest radiation, on no home anti-hypertensives. will consult cardiology for recommendation - Dr. Cardoza consulted #Hypoxia - resolved, patient comfortable on room air, no complaint of SOB currently #Metastatic Breast Cancer - Dr. Donaldson consulted - letrozole 2.5mg daily - Ibranz daily, patient's own medication #Dispo - patient's primary/onc/pulm care is at [facility]. Attempt overnight was unsuccessful for transfer with [facility]'s pulm fellow. Discussed the case today with Dr. Moore, oncology fellow. She will need to present the case to her attending, unfortunately there are no beds available currently. She will get back to me tomorrow after discussing the case with her attending tomorrow. pager number [phone]. Dvt: lovenox Diet: diabetic diet Visit type - Emergency Visit Emergency Visit: No - New Patient This patient is new to me today: Yes Date on this admission: 05/20/16 - Critical Care Critical Care patient: No - Discharge Referral Referred to [facility] Med P.C.: No
--- NOTE | 2016-05-20 17:39 | CONSULT ---
Consult Consult Specialty:: Infectious diseases Reason for Consultation:: r/o pna,h/o breast cancer pleural fluid - History of Present Illness Chief Complaint: passing out History of Present Illness: 46 year old female with h/o breast ca with mastectomy on the right and lumpectomy on the left admitted to the hospital because of passing out . according to the patient she took robitussin after the meal because she was having cough and then she just passed out denies any other symptoms of tachy fever or feeling of weakness she was recently evaluated by her oncologist and was told everything was fine. 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 No: AFIB, CHF Pulmonary: Yes: O2 Dependent (was told she needed o2 but refused). No: Asthma, COPD Gastrointestinal: No: Cancer Hepatobiliary: No: Cirrhosis Renal/: No: Renal Failure ...LMP: 05/13/09 ...: No Infectious Disease: No: AIDS Psych: No: Addictions Musculoskeletal: No: Bursitis Rheumatology: No: Fibromyalgia ENT: No: Allergic Rhinitis Endocrine: Yes: Diabetes Mellitus (type II) - Past Surgical History Past Surgical History: Yes: Breast Biopsy, , Mastectomy - Alcohol/Substance Use Hx Alcohol Use: No History of Substance Use: reports: None. 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 Medications - Allergies Allergies/Adverse Reactions: Allergies Allergy/AdvReac Type Severity Reaction Status Date / Time No Known Drug Allergies Allergy Verified 06/08/13 17:11 - Home Medications Home Medications: Ambulatory Orders Anastrozole [Arimidex -] 1 mg PO DAILY 08/24/12 Cholecalciferol (Vitamin D3) [Vitamin D] 400 unit PO DAILY 11/07/12 Metformin HCl [Glucophage] 1,000 mg PO BID 11/07/12 Family Disease History - Family Disease History Family Disease History: Diabetes: Father Review of Systems - Review of Systems Constitutional: reports: No Symptoms Eyes: reports: No Symptoms HENT: reports: No Symptoms Neck: reports: No Symptoms Cardiovascular: reports: No Symptoms Respiratory: reports: No Symptoms Gastrointestinal: reports: No Symptoms Genitourinary: reports: No Symptoms Breasts: reports: No Symptoms Reported Musculoskeletal: reports: No Symptoms Integumentary: reports: No Symptoms Neurological: reports: Syncope Endocrine: reports: No Symptoms Hematology/Lymphatic: reports: No Symptoms Physical Exam Vital Signs: Vital Signs Temperature 98.1 F 05/20/16 14:32 Pulse Rate 100 H 05/20/16 14:32 Respiratory Rate 18 05/20/16 14:32 Blood Pressure 100/60 05/20/16 14:32 O2 Sat by Pulse Oximetry (%) 96 05/20/16 14:32 Constitutional: Yes: Well Nourished, No Distress, Calm Eyes: Yes: Conjunctiva Clear HENT: Yes: Atraumatic, Normocephalic Neck: Yes: Supple, Trachea Midline Cardiovascular: Yes: Regular Rate and Rhythm Respiratory: Yes: Regular, Poor Air Entry, Other (crackels both sides pleurex tube on left side) Gastrointestinal: Yes: Normal Bowel Sounds, Soft Breast(s): Yes: Left (no s/o infection), Right (wound well healed,no s/o infection) Neurological: Yes: Alert, Oriented Psychiatric: Yes: Alert Labs: CBC, BMP 05/20/16 07:45 05/20/16 07:45 Imaging - Results Chest X-ray: Report Reviewed, Image Reviewed Cat Scan: Report Reviewed, Image Reviewed Assessment/Plan after evaluating the patinet the patient is very high risk for infection.after looking at the ct scan there are changes noted but i have less suspicion that this is infection,though i cannot rule it out also her wbc has dropped which is a very worrying sign i am going to watch her for today # Vasovagal syncope # Hypoxic respiratory failure Pleural effusion and pericardial effusion. Has h/o Metastatic breast cancer-s/p lumpectomy and mastectomy # Diabetes Mellitus plan will watch the patient very closely if she spikes fever even above 99 start on zosyn also if the wbc does not start coming up will start on abx incentive katty continue to monitor if any fever--send the pleural fluid for culture and sensitivity
[2016-05-20] MEDS: LETROZOLE 2.5 MG TABLET (FP) PO SCH (18:45)
--- NOTE | 2016-05-20 21:52 | CONSULT ---
Consult - text type - Consultation Consultation Note: patient seen and examined 46yo Female patient with metastatic breast-CA with pleural effusions h/o brain mets presents to ED c/o syncope, shortness of breath today. Patient states having cold symptoms and not feeling well. She took Robitussin and was getting ready for bed with she felt "funny" feeling in her stomach and "passed out. Prior to this episode patient states she had not been sleeping well, and was given prescription for Ambien from Dr. Pascual (Oncology) which she took last night and slept fine. She denies CP, Abd pain, back pain, fever, cough, congestion, rash, confusion, or any other complaint at this time. Past History rt. breast cancer 2008--mastectomy lt, reast cancer 2010 - Past Medical History Allergies/Adverse Reactions: Allergies Allergy/AdvReac Type Severity Reaction Status Date / Time No Known Drug Allergies Allergy Verified 06/08/13 17:11 Home Medications: Ambulatory Orders Anastrozole [Arimidex -] 1 mg PO DAILY 08/24/12 Cholecalciferol (Vitamin D3) [Vitamin D] 400 unit PO DAILY 11/07/12 Metformin HCl [Glucophage] 1,000 mg PO BID 11/07/12 - Psycho/Social/Smoking Cessation Hx nonsmoker *Physical Exam - Vital Signs Last Vital Signs Temp Pulse Resp BP Pulse Ox 98.8 F 114 H 26 H 125/85 92 L 05/19/16 19:59 05/19/16 19:59 05/19/16 19:59 05/19/16 19:59 05/19/16 19:59 HEENT: VICKY, EOM Intact Cor: RSR, No murmurs, No gallops Lungs: Clear to P&A Abd: Soft, Normal bowel sounds, No organomegaly Ext:No significant edema Skin: No rashes, Integument intact Abnormal Lab Results 05/20/16 05/21/16 05/21/16 14:00 06:00 06:00 WBC 2.3 L RBC 3.17 L MCV 102.4 H RDW 16.8 H Random Glucose 148 H D Hemoglobin A1c % 7.1 H D A/P 46 y/o with metastatic breast ca on letrozole + ibrance comes in with syncope wbc 2.5 /mild pancytopenia no obvious infection awaiting mri, given h/o brain mets
[2016-05-21] MEDS: INSULIN SLIDING SCALE (NOVOLOG) 1 VIAL SQ SCH ×4 (06:36→22:56)
[2016-05-21 08:28] LABS: BASOPHIL 0.9 % (0-2.0); EOSINOPHIL 1.8 % (0-4.5); MCH 34.7 pg (25.7-33.7); MCHC 33.9 g/dl (32.0-36.0); MEAN CELL VOLUME 102.4 fl (80-96); MEAN PLT VOLUME 7.5 fl (7.5-11.1); NEUTROPHILS 60.5 % (42.8-82.8); PLATELET COUNT 427 K/MM3 (134-434); RDW 16.8 % (11.6-15.6); WHITE BLOOD COUNT 2.3 K/mm3 (4.0-10.0)
[2016-05-21 08:54] LABS: CALCIUM 9.1 mg/dL (8.5-10.1)
--- NOTE | 2016-05-21 08:59 | PN ---
Physical Exam: SUBJECTIVE: Patient seen and examined. Slept well last night. feels comfortable on room air denies palpitation, chest pain, sob, fever, cough, dizziness, lightheadedness. OBJECTIVE: Vital Signs Period Temp Pulse Resp BP Sys/Siddiqui Pulse Ox Last 24 Hr 97.5 F-98.2 F 100-113 18-20 93-117/60-76 96 GENERAL: The patient is awake, alert, and fully oriented, in no acute distress. EYES: PERRL, extraocular movements intact, sclera anicteric, conjunctiva clear. No ptosis. ENT: Ears normal, nares patent, oropharynx clear without exudates, moist mucous membranes. no facial asymmetry. NECK: Trachea midline, full range of motion, supple. LUNGS: Clear to auscultation in right lung, diminished breath sounds left lung, no wheezing. Chest tube in place on left lower back, no surrounding erythema, tenderness, discharge. HEART: Regular rate and rhythm, S1, S2 without murmur, rub or gallop. ABDOMEN: Soft, nontender, nondistended, normoactive bowel sounds EXTREMITIES: 2+ pulses, warm, well-perfused, no edema. 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 sensation intact throughout. NEUROLOGICAL: Cranial nerves II through XII grossly intact. Normal speech PSYCH: Normal mood, normal affect. SKIN: Warm, dry, normal turgor, no rashes or lesions noted Laboratory Results - last 24 hr 05/20/16 05/20/16 05/20/16 07:45 14:00 15:37 WBC RBC Hgb Hct MCV MCHC RDW Plt Count MPV Neutrophils % Lymphocytes % Monocytes % Eosinophils % Basophils % Platelet Estimate Adequate Anisocytosis 1+ POC Glucometer [phone] Hemoglobin A1c % 7.1 H D 05/20/16 05/20/16 05/21/16 18:40 22:38 05:30 WBC RBC Hgb Hct MCV MCHC RDW Plt Count MPV Neutrophils % Lymphocytes % Monocytes % Eosinophils % Basophils % Platelet Estimate Anisocytosis POC Glucometer 194 113 120 Hemoglobin A1c % 05/21/16 06:00 WBC 2.3 L RBC 3.17 L Hgb 11.0 Hct 32.4 MCV 102.4 H MCHC 33.9 RDW 16.8 H Plt Count 427 MPV 7.5 Neutrophils % 60.5 Lymphocytes % 30.1 D Monocytes % 6.7 Eosinophils % 1.8 D Basophils % 0.9 Platelet Estimate Anisocytosis POC Glucometer Hemoglobin A1c % Active Medications Generic Name Dose Route Start Last Admin Trade Name Kelvin PRN Reason Stop Dose Admin Cholecalciferol 400 unit 05/20/16 10:00 05/20/16 09:48 Vitamin D3 - PO Not Given DAILY [facility] Enoxaparin Sodium 40 mg 05/20/16 10:00 05/20/16 09:48 Lovenox - SQ 40 mg DAILY [facility] Administration Insulin Aspart 1 vial 05/20/16 11:00 05/21/16 06:36 Novolog Vial Sliding Scale - SQ Not Given [facility] Protocol Letrozole 2.5 mg 05/20/16 14:15 05/20/16 18:45 Femara - PO Not Given DAILY [facility] Non-Formulary Medication 1 each 05/20/16 18:00 Patient's Own Med PO DAILY [facility] ASSESSMENT/PLAN: 46 year old woman with breast cancer with brain mets s/p gamma knife radiation, right mastectomy, hx of pericardial effusion and bilateral lung effusions, NIDDM , admitted to telemetry for syncopal work-up. #Syncope - arrhythmia vs vasovagal vs seizure secondary to brain mets vs infectious cause - as per Marisa Baxter([facility]) patient is known to have a stable pericardial effusion, read as mild in their last imaging study. Read as mild- moderate in [facility] CT. - continuos cardiac monitoring for arrhythmia - non seen on monitor. - Pulsus paradoxus difference in pressure was 10 today, improved since yesterday - MRI with/w/o myrtle for brain masses: scattered tiny enhancing right and left cerebral foci with probably 2 tiny enhancing lesions in the left cerebellum hihgky suspicious for metastasis. Largest ring-enhancing lesion seen in right frontal lobe. no gross acute infarct or intracranial hemorrhage is seen. - carotid doppler negative for stenosis #Pleural effusion/chest CT findings - patient is to remove chest tube next week, drains 20cc every 10 days. - monitor for any increase in drainage or blood, keep site CDI - observe off antibiotics #NIDDM - uncontrolled - ACHS BGM - HBa1c 7.1 - hold metformin, maintain on NISS #r/o tamponade from pericardial effusion - moderate pericardial effusion 1-2cm on echo, no paradoxical movements/tamponade reported. - Dr. Cardoza consulted #Hypoxia - resolved, patient comfortable on room air, no complaint of SOB currently #Metastatic Breast Cancer - Dr. Donaldson consulted - letrozole 2.5mg daily - Ibranz daily, patient's own medication - pancytopenia, likely side effect of chemotherapy. continue to trend, absolute neutrophil count 1392 #Dispo - patient's primary/onc/pulm care is at [facility]. Discussed the case yesterday with Dr. Moore, oncology fellow. She will need to present the case to her attending, unfortunately there are no beds available currently. have not heard from Dr. Moore today will attempt to reach her tomorrow if patient requires further care. pager number [phone]. Dvt: lovenox Diet: diabetic diet Visit type - Emergency Visit Emergency Visit: No - New Patient This patient is new to me today: No - Critical Care Critical Care patient: No - Discharge Referral Referred to [facility] Med P.C.: No
[2016-05-21] MEDS ORDERED: PT OWN MED DRAWER 7, Y5N ONE (09:23)
[2016-05-21] MEDS: CHOLECALCIFEROL (VITAMIN D3) 400 UNIT TABLET (FP) PO SCH (09:43)
[2016-05-21] MEDS: ENOXAPARIN NA (PORCINE) 40 MG/0.4 ML DISP.SYRIN SQ SCH (09:43)
[2016-05-21] MEDS: LETROZOLE 2.5 MG TABLET (FP) PO SCH (09:49)
--- NOTE | 2016-05-21 12:03 | PN ---
Progress Note, Physician History of Present Illness: PULMONARY ALERT,FEELING BETTER,LESS DYSPNEIC - Current Medication List Current Medications: Active Medications Cholecalciferol (Vitamin D3 -) 400 unit PO DAILY [facility] Last Admin: 05/21/16 09:43 Dose: 400 unit Enoxaparin Sodium (Lovenox -) 40 mg SQ DAILY [facility] Last Admin: 05/21/16 09:43 Dose: 40 mg Insulin Aspart (Novolog Vial Sliding Scale -) 1 vial SQ ACHS [facility] PRN Reason: Protocol Last Admin: 05/21/16 11:50 Dose: Not Given Letrozole (Femara -) 2.5 mg PO DAILY [facility] Last Admin: 05/21/16 09:49 Dose: 2.5 mg Non-Formulary Medication (Patient's Own Med) 1 each PO DAILY [facility] - Objective Vital Signs: Vital Signs Temperature 97.5 F L 05/21/16 00:00 Pulse Rate 107 H 05/21/16 05:58 Respiratory Rate 20 05/21/16 05:58 Blood Pressure 106/70 05/21/16 05:58 O2 Sat by Pulse Oximetry (%) 96 05/20/16 14:32 Constitutional: Yes: Well Nourished, Calm Eyes: Yes: WNL HENT: Yes: WNL Neck: Yes: WNL Cardiovascular: Yes: Regular Rate and Rhythm, S1, S2 Respiratory: Yes: CTA Bilaterally Gastrointestinal: Yes: WNL Extremities: Yes: WNL Edema: No Labs: CBC, BMP 05/21/16 06:00 05/21/16 06:00 Problem List - Problems (1) Breast CA Code(s): C50.919 - MALIGNANT NEOPLASM OF UNSP SITE OF UNSPECIFIED FEMALE BREAST (2) Pleural effusion Code(s): J90 - PLEURAL EFFUSION, NOT ELSEWHERE CLASSIFIED (3) Hypoxemia Code(s): R09.02 - HYPOXEMIA (4) Shortness of breath Code(s): R06.02 - SHORTNESS OF BREATH (5) Diabetes Code(s): E11.9 - TYPE 2 DIABETES MELLITUS WITHOUT COMPLICATIONS Assessment/Plan Assessment/Plan RIGHT BREAST CA DXED 2008 S/P MASTECTOMY, CHEMOTX/RT LEFT BREAST CA DXED 2011 S/P LUMPECTOMY,CHEMOTX/RT LEFT BREAST RECURRENCE 2016 WITH PLEURAL/PERICARDIAL EFFUSION/BRAIN METS WITH CERVICAL NODE INVOLVEMENT S/P LEFT PLEUREX PLACED ONLETROZOLE/IBRANCE H/O DM ON METFORMIN ? SYNCOPE HYPONATREMIA IMPROVED B/L PLEURAL EFFUSIONS AND EXTENSIVE INFILTRATE WITH AIR-BRONCHOGRAMS ON RIGHT WITH ELEVATED TYLER DIAPHRAGM O2 SUPPLEMENTATION ANTIBIOTICS PER ID BRONCHODILATORS GLYCEMIC CONTROL INCENTIVE SPIROMETRY MONITOR BHARATI,PATITO MARIA
--- NOTE | 2016-05-21 12:52 | PN ---
Teaching Attending Note Name of Resident: David Michelle ATTENDING PHYSICIAN STATEMENT I saw and evaluated the patient. I reviewed the resident's note and discussed the case with the resident. I agree with the resident's findings and plan as documented. SUBJECTIVE: no fever or chills, no abd pain , no fever or chills, slept well , chronic non productive cough. not changed from before . OBJECTIVE: NAD , AAOX3 CV: RRR, no MRG Lungs: decreased breath sounds at R base . L chest tube in pace . Ext: No edema over b/l LE ASSESSMENT AND PLAN: 46 y/o lady with h/o DM , breast cancer s/p R mastectomy , L lumpectomy ,brain mets s/p gamma knife , recurrent pleural effusions s/p L chest tube, and pericardial effusion ,, who presented with syncopal episode. 1- Syncope, not clear etiology, vasovagal vs seizure. - MRI of brain w/wo myrtle pending - echo with no signs of tamponade . pulsus paradoxus 10 todya - cont tele , no events overnight 2- DM , improved GLC . cont SSI 3- SOB , hypoxia , resolved . now on RA - hold off abx . appreciate ID help - has pleurex in L side 4- Breast cancer s/p R mastectomy , L lumpectomy and MEts to brain s/p gamma knife . Onc consult 5- Dispo : HLOC
--- NOTE | 2016-05-21 23:18 | PN ---
Progress Note (short form) - Note Progress Note: Patient seen and exaomed Last Vital Signs Temp Pulse Resp BP Pulse Ox 98.2 F 75 20 110/71 95 05/21/16 18:00 05/21/16 18:00 05/21/16 18:00 05/21/16 18:00 05/21/16 08:00 HEENT: VICKY, EOM Intact Cor: RSR, No murmurs, No gallops Lungs: Clear to P&A Abd: Soft, Normal bowel sounds, No organomegaly Ext:No significant edema Skin: No rashes, Integument intact Abnormal Lab Results 05/21/16 05/21/16 06:00 06:00 WBC 2.3 L RBC 3.17 L MCV 102.4 H RDW 16.8 H Random Glucose 148 H D Current Medications Cholecalciferol (Vitamin D3 -) 400 unit PO DAILY [facility] Last Admin: 05/21/16 09:43 Dose: 400 unit Enoxaparin Sodium (Lovenox -) 40 mg SQ DAILY [facility] Last Admin: 05/21/16 09:43 Dose: 40 mg Insulin Aspart (Novolog Vial Sliding Scale -) 1 vial SQ ACHS [facility] PRN Reason: Protocol Last Admin: 05/21/16 22:56 Dose: Not Given Letrozole (Femara -) 2.5 mg PO DAILY [facility] Last Admin: 05/21/16 09:49 Dose: 2.5 mg Non-Formulary Medication (Patient's Own Med) 1 each PO DAILY [facility] A/P 46 y/o with metastatic breast ca with h/o brain mets s/p SRS, pleural effusions.on letrozole + ibrance comes in with syncope wbc 2.3 /mild pancytopenia no obvious infection MRI --2 new lt. cerebellar hypodensities and 1 rt. frontal will consult pleural effusions--lt. chest wall catherter--needs removal per IR at [facility]-- scheduled tomorrow monitor CBC f/iu with primary oncologist--dr. oliver
[2016-05-22] MEDS: INSULIN SLIDING SCALE (NOVOLOG) 1 VIAL SQ SCH ×4 (06:23→21:44)
[2016-05-22 07:08] LABS: MCH 34.5 pg (25.7-33.7); MCHC 33.4 g/dl (32.0-36.0); MEAN CELL VOLUME 103.3 fl (80-96); PLATELET COUNT 406 K/MM3 (134-434); RDW 16.8 % (11.6-15.6)
[2016-05-22 07:12] LABS: WHITE BLOOD COUNT 1.8 K/mm3 (4.0-10.0)
--- NOTE | 2016-05-22 08:31 | PN ---
Physical Exam: SUBJECTIVE: Patient seen and examined Feels okay, was not able to sleep well last night, fell asleep around 2am due to noisy neighbhor. Would like to be discharged today, she has an appointment with her dr to remove the chest tube today at 12pm. Denies repeat episodes of syncope, chest pain, palpitations, sob, fever, changes in vision, abdominal pain, cough. OBJECTIVE: Vital Signs Period Temp Pulse Resp BP Sys/Siddiqui Pulse Ox Last 24 Hr 97.9 F-98.2 F 73-112 18-20 103-116/53-74 91 GENERAL: The patient is awake, alert, and fully oriented, in no acute distress. EYES: PERRL, extraocular movements intact, sclera anicteric, conjunctiva clear. no conjuctival palor No ptosis. ENT: Ears normal, nares patent, oropharynx clear without exudates, moist mucous membranes. no facial asymmetry. NECK: Trachea midline, full range of motion, supple. LUNGS: right lung with fine basilar crackles, diminished breath sounds left lung , no wheezing. Chest tube in place on left lower back, no surrounding erythema, tenderness, discharge. HEART: tachycardia (rate 108), regular rhythm S1, S2 without murmur, rub or gallop. ABDOMEN: Soft, nontender, nondistended, normoactive bowel sounds EXTREMITIES: 2+ pulses, warm, well-perfused, no edema. strength 5/5 in shoulders , biceps, triceps, hand anesthesia attending, hip, knee, ankle. sensation intact throughout. NEUROLOGICAL: Cranial nerves II through XII grossly intact. Normal speech PSYCH: Normal mood, normal affect. SKIN: Warm, dry, normal turgor, no rashes or lesions noted Laboratory Results - last 24 hr 05/21/16 05/21/16 05/21/16 06:00 06:00 11:36 WBC 2.3 L RBC 3.17 L Hgb 11.0 Hct 32.4 MCV 102.4 H MCHC 33.9 RDW 16.8 H Plt Count 427 MPV 7.5 Neutrophils % 60.5 Lymphocytes % 30.1 D Monocytes % 6.7 Eosinophils % 1.8 D Basophils % 0.9 Sodium 138 Potassium 4.5 Chloride 103 Carbon Dioxide 26 Anion Gap 9 BUN 14 D Creatinine 1.0 POC Glucometer 112 Random Glucose 148 H D Calcium 9.1 05/21/16 05/21/16 05/22/16 17:11 22:55 05:35 WBC 1.8 L RBC 3.22 L Hgb 11.1 Hct 33.2 MCV 103.3 H MCHC 33.4 RDW 16.8 H Plt Count 406 MPV 8.0 Neutrophils % Y Lymphocytes % Y Monocytes % Eosinophils % Basophils % Sodium Potassium Chloride Carbon Dioxide Anion Gap BUN Creatinine POC Glucometer 110 120 Random Glucose Calcium 05/22/16 06:01 WBC RBC Hgb Hct MCV MCHC RDW Plt Count MPV Neutrophils % Lymphocytes % Monocytes % Eosinophils % Basophils % Sodium Potassium Chloride Carbon Dioxide Anion Gap BUN Creatinine POC Glucometer 125 Random Glucose Calcium Active Medications Generic Name Dose Route Start Last Admin Trade Name Freq PRN Reason Stop Dose Admin Cholecalciferol 400 unit 05/20/16 10:00 05/21/16 09:43 Vitamin D3 - PO 400 unit DAILY [facility] Administration Enoxaparin Sodium 40 mg 05/20/16 10:00 05/21/16 09:43 Lovenox - SQ 40 mg DAILY [facility] Administration Piperacillin Sod/Tazobactam 50 mls @ 100 mls/hr 05/22/16 07:25 Sod 3.375 gm/ Dextrose IVPB 05/22/16 07:54 ONCE ONE Protocol Insulin Aspart 1 vial 05/20/16 11:00 05/22/16 06:23 Novolog Vial Sliding Scale - SQ Not Given ACHS [facility] Protocol Letrozole 2.5 mg 05/20/16 14:15 05/21/16 09:49 Femara - PO 2.5 mg DAILY [facility] Administration Non-Formulary Medication 1 each 05/20/16 18:00 Patient's Own Med PO DAILY [facility] ASSESSMENT/PLAN: 46 year old woman with breast cancer with brain mets s/p gamma knife radiation, right mastectomy, hx of pericardial effusion and bilateral lung effusions, NIDDM , admitted to telemetry for syncopal work-up. #Metastatic Breast Cancer - MRI with&w/o contrast showing enhancing lesions, Dr. Cuba (her neurosurgeon) consulted for further evaluation/treatment options. - Dr. Donaldson consulted - letrozole 2.5mg daily, patient's own medication - Ibranz daily, patient's own medication #Pancytopenia, likely side effect of chemotherapy - absolute neutrophil count 1008 today, started on zosyn today given low count. - continue to trend, recommendations provided by Dr. Wolff to discontinue Ibranz - u/a negative, bld cx pending #Syncope - vasovagal vs seizure secondary to brain mets - as per Marisa Baxter([facility]) patient is known to have a stable pericardial effusion, read as mild in their last imaging study. Read as mild- moderate in [facility] CT - continuos cardiac monitoring for arrhythmia - non seen on monitor, unlikely to be arrhythmia - MRI with/w/o myrtle for brain masses: scattered tiny enhancing right and left cerebral foci with probably 2 tiny enhancing lesions in the left cerebellum highly suspicious for metastasis. Largest ring-enhancing lesion seen in right frontal lobe. no gross acute infarct or intracranial hemorrhage is seen. - carotid doppler negative for stenosis #Pleural effusion/chest CT findings - monitor for any increase in drainage or blood, keep site CDI - patient will reschedule appointment with physician to tube change #NIDDM - controlled, BGM <200, has not required ISS coverage - [facility] BGM - HBa1c 7.1 - hold metformin, maintain on NISS #pericardial effusion - moderate pericardial effusion 1-2cm on echo, no paradoxical movements/tamponade reported. - as per Dr. Maynard, no indication to drain effusion #Hypoxia - resolved, patient comfortable on room air, no complaint of SOB currently #Dispo - patient's primary/onc/pulm care is at [facility]. case discussed Dr. Moore pager number [phone] on 05/20, oncology fellow, aware of case, has not called [facility] regardin transfer, patient was amenable to remaining here. pending 's recommendations for treatment, may require transfer to [facility]. Dvt: lovenox Diet: diabetic diet Visit type - Emergency Visit Emergency Visit: No - New Patient This patient is new to me today: No - Critical Care Critical Care patient: No - Discharge Referral Referred to [facility] Med P.C.: No
[2016-05-22 08:33] LABS: PLATELET ESTIMATE ADEQUATE (NORMAL)
[2016-05-22] MEDS ORDERED: PT OWN MED DRAWER 7, Y5N ONE (08:54)
[2016-05-22] MEDS: LETROZOLE 2.5 MG TABLET (FP) PO SCH (09:23)
[2016-05-22] MEDS: ENOXAPARIN NA (PORCINE) 40 MG/0.4 ML DISP.SYRIN SQ SCH (09:23)
[2016-05-22] MEDS: CHOLECALCIFEROL (VITAMIN D3) 400 UNIT TABLET (FP) PO SCH (09:24)
[2016-05-22] MEDS ORDERED: PIPERACILLIN/TAZOB 3.375 GM 50 ML IVPB ONE (10:00)
--- NOTE | 2016-05-22 12:33 | PN ---
Progress Note, Physician History of Present Illness: PULMONARY ALERT,FEELING BETTER,-CP,-SOB - Current Medication List Current Medications: Active Medications Cholecalciferol (Vitamin D3 -) 400 unit PO DAILY [facility] Last Admin: 05/22/16 09:24 Dose: Not Given Enoxaparin Sodium (Lovenox -) 40 mg SQ DAILY [facility] Last Admin: 05/22/16 09:23 Dose: Not Given Insulin Aspart (Novolog Vial Sliding Scale -) 1 vial SQ ACHS [facility] PRN Reason: Protocol Last Admin: 05/22/16 11:58 Dose: Not Given Letrozole (Femara -) 2.5 mg PO DAILY [facility] Last Admin: 05/22/16 09:23 Dose: Not Given Non-Formulary Medication (Patient's Own Med) 1 each PO DAILY [facility] - Objective Vital Signs: Vital Signs Temperature 97.0 F L 05/22/16 10:00 Pulse Rate 108 H 05/22/16 10:00 Respiratory Rate 18 05/22/16 10:00 Blood Pressure 107/76 05/22/16 10:00 O2 Sat by Pulse Oximetry (%) 91 L 05/21/16 22:12 Constitutional: Yes: Well Nourished, Calm Eyes: Yes: WNL HENT: Yes: WNL Neck: Yes: WNL Cardiovascular: Yes: Regular Rate and Rhythm, S1, S2 Respiratory: Yes: Diminished Gastrointestinal: Yes: WNL Extremities: Yes: WNL Edema: No Labs: CBC, BMP 05/22/16 05:35 - ....Imaging MRI: Report Reviewed (+ BUILDING TECH METS) Problem List - Problems (1) Breast CA Code(s): C50.919 - MALIGNANT NEOPLASM OF UNSP SITE OF UNSPECIFIED FEMALE BREAST (2) Pleural effusion Code(s): J90 - PLEURAL EFFUSION, NOT ELSEWHERE CLASSIFIED (3) Hypoxemia Code(s): R09.02 - HYPOXEMIA (4) Shortness of breath Code(s): R06.02 - SHORTNESS OF BREATH (5) Diabetes Code(s): E11.9 - TYPE 2 DIABETES MELLITUS WITHOUT COMPLICATIONS Assessment/Plan Assessment/Plan RIGHT BREAST CA DXED 2008 S/P MASTECTOMY, CHEMOTX/RT LEFT BREAST CA DXED 2011 S/P LUMPECTOMY,CHEMOTX/RT LEFT BREAST RECURRENCE 2016 WITH PLEURAL/PERICARDIAL EFFUSION/BRAIN METS WITH CERVICAL NODE INVOLVEMENT S/P LEFT PLEUREX PLACED ON LETROZOLE/IBRANCE H/O DM ON METFORMIN ? SYNCOPE HYPONATREMIA IMPROVED B/L PLEURAL EFFUSIONS AND EXTENSIVE INFILTRATE WITH AIR-BRONCHOGRAMS ON RIGHT WITH ELEVATED TYLER DIAPHRAGM O2 SUPPLEMENTATION ANTIBIOTICS PER ID BRONCHODILATORS GLYCEMIC CONTROL INCENTIVE SPIROMETRY MONITOR LYTES,CBC PER ONCOLOGY NEURO SURGERY EVAL ? RT DR MARIA
--- NOTE | 2016-05-22 13:38 | PN ---
Teaching Attending Note Name of Resident: David Michelle ATTENDING PHYSICIAN STATEMENT I saw and evaluated the patient. I reviewed the resident's note and discussed the case with the resident. I agree with the resident's findings and plan as documented. SUBJECTIVE: No fever or chills, no abd pain, did not sleep last night . dry cough OBJECTIVE: NAD , AAOX3 CV: RRR, no MRG Lungs: decreased breath sounds at R base . L chest tube in pace . Ext: No edema over b/l LE ASSESSMENT AND PLAN: 46 y/o lady with h/o DM , breast cancer s/p R mastectomy , L lumpectomy ,brain mets s/p gamma knife , recurrent pleural effusions s/p L chest tube, and pericardial effusion ,, who presented with syncopal episode. 1- Syncope, not clear etiology, vasovagal vs seizure. - MRI of brain w/wo myrtle showed small lesions , biggest in R frontal 8 mm - echo with no signs of tamponade . ASked Dr. Maynard to review - cont tele , no events. CUS reviewed. - no further w/u for syncope 2- Breast cancer s/p R mastectomy , L lumpectomy and MEts to brain s/p gamma knife . - pt had brain mets before , last MRI in with small stable Mets. Dr. Bereket de souza is appreciated. will follow for further Recs 3- SOB , hypoxia , resolved . now on RA - no convincing clinical signs of PNA . but neutropeniais worsening - follow blood cx - gave one dose of zosyn, will D/W ID 4- neutropenia : ANC 1008 today . not clear if due to chemo VS occult infection - Follow blood cx - Send UA , if pyuria will send urine cx - monitor WBC 5- Dispo : HLOC
--- NOTE | 2016-05-22 15:00 | PN ---
Progress Note (short form) - Note Progress Note: NEUROSURGERY Pt well known to me Seen earlier this am Admitted with syncopal episode S/p gamma knife for multiple intracranial mets several months ago PE: General- looks well CV- RRR; Lungs- CTA B; Abd- benign; Ext- no sign of DVT NEURO- A/A/Ox4 CN- intact; Motor- 5/5 without drift; Sensation- intact; DTR- 1+ Gait- stable MRI brain- R medial high frontal 5 mm; R posterior occipital 5 mm, and L anterior frontal GW junction 6 mm enhancing lesion with mild edema WBC 1.6; hgb 11.4 Breast CA met Responded well to gamma knife previously with almost near complete resolution Still with Karnosfy's of > 80-90 Care d/w rad onc and pt; will coordinate with med onc Would consider further gamma knife boosts vs whole brain XRT (though may not wish to stop chemo for whole brain in which case gamma knife would be preferred) D/w Dr Palafox
[2016-05-22 15:17] LABS: URINE APPEARANCE CLEAR; URINE BILIRUBIN NEGATIVE (NEGATIVE); URINE BLOOD NEGATIVE (NEGATIVE); URINE COLOR YELLOW; URINE GLUCOSE (UA) NEGATIVE (NEGATIVE); URINE KETONE NEGATIVE (NEGATIVE); URINE LEUK ESTERASE NEGATIVE (NEGATIVE); URINE NITRITE NEGATIVE (NEGATIVE); URINE PROTEIN NEGATIVE (NEGATIVE); URINE UROBILINOGEN NEGATIVE E.U./dl (0.2-1.0)
--- NOTE | 2016-05-22 16:18 | PN ---
Progress Note, Physician History of Present Illness: patient stable wbc has dropped down - Current Medication List Current Medications: Active Medications Cholecalciferol (Vitamin D3 -) 400 unit PO DAILY [facility] Last Admin: 05/22/16 09:24 Dose: Not Given Enoxaparin Sodium (Lovenox -) 40 mg SQ DAILY [facility] Last Admin: 05/22/16 09:23 Dose: Not Given Insulin Aspart (Novolog Vial Sliding Scale -) 1 vial SQ ACHS [facility] PRN Reason: Protocol Last Admin: 05/22/16 11:58 Dose: Not Given Letrozole (Femara -) 2.5 mg PO DAILY [facility] Last Admin: 05/22/16 09:23 Dose: Not Given Non-Formulary Medication (Patient's Own Med) 1 each PO DAILY [facility] - Objective Vital Signs: Vital Signs Temperature 97.4 F L 05/22/16 14:25 Pulse Rate 104 H 05/22/16 14:25 Respiratory Rate 18 05/22/16 14:25 Blood Pressure 106/70 05/22/16 14:25 O2 Sat by Pulse Oximetry (%) 92 L 05/22/16 10:00 Constitutional: Yes: No Distress, Calm Eyes: Yes: Conjunctiva Clear Cardiovascular: Yes: Regular Rate and Rhythm Respiratory: Yes: Regular, Poor Air Entry Gastrointestinal: Yes: Normal Bowel Sounds, Soft Musculoskeletal: Yes: WNL Extremities: Yes: WNL Integumentary: Yes: WNL Neurological: Yes: Alert, Oriented Psychiatric: Yes: Alert Labs: CBC, BMP 05/22/16 05:35 05/21/16 06:00 - ....Imaging MRI: Report Reviewed, Image Reviewed Assessment/Plan # Vasovagal syncope # Hypoxic respiratory failure Pleural effusion and pericardial effusion. Has h/o Metastatic breast cancer-s/p lumpectomy and mastectomy # Diabetes Mellitus neutropenia lung infiltrate plan will start patient on zosyn will keep her on for 24 hours at least will check wbc tomorrow and decide
--- NOTE | 2016-05-22 16:19 | CON.CARD ---
Consult Consult Specialty:: Cardiology Referred by:: Hospitalist Medicine Reason for Consultation:: Pericardial effusion - History of Present Illness Chief Complaint: Syncope History of Present Illness: 46yo Female patient with metastatic breast-brain CA with pleural effusions h/o brain mets presented to ED c/o syncope, shortness of breath, she was hospitalized in [facility] in early April for pericardial fluid/pleural effusion post drainage. Echo showed showed small circumferential effusion with preserved LV fxn. 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 No: AFIB, CHF Pulmonary: Yes: O2 Dependent (was told she needed o2 but refused). No: Asthma, COPD Gastrointestinal: No: Cancer Hepatobiliary: No: Cirrhosis Renal/: No: Renal Failure ...LMP: 05/13/09 ...: No Infectious Disease: No: AIDS Psych: No: Addictions Musculoskeletal: No: Bursitis Rheumatology: No: Fibromyalgia ENT: No: Allergic Rhinitis Endocrine: Yes: Diabetes Mellitus (type II) - Past Surgical History Past Surgical History: Yes: Breast Biopsy, , Mastectomy - Alcohol/Substance Use Hx Alcohol Use: No History of Substance Use: reports: None. 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 Medications - Allergies Allergies/Adverse Reactions: Allergies Allergy/AdvReac Type Severity Reaction Status Date / Time No Known Drug Allergies Allergy Verified 06/08/13 17:11 - Home Medications Home Medications: Ambulatory Orders Anastrozole [Arimidex -] 08/24/12 Cholecalciferol (Vitamin D3) [Vitamin D] 2,000 unit PO DAILY 11/07/12 Metformin HCl [Glucophage] 500 mg PO DAILY 11/07/12 Biotin DAILY 05/22/16 Letrozole [Femara -] 2.5 mg PO DAILY 05/22/16 Palbociclib [Ibrance] 125 mg PO DAILY 05/22/16 Family Disease History - Family Disease History Family Disease History: Diabetes: Father Review of Systems - Review of Systems Cardiovascular: reports: Shortness of Breath Neurological: reports: Syncope Vital Signs: Vital Signs Temperature 97.4 F L 05/22/16 14:25 Pulse Rate 104 H 05/22/16 14:25 Respiratory Rate 18 05/22/16 14:25 Blood Pressure 106/70 05/22/16 14:25 O2 Sat by Pulse Oximetry (%) 92 L 05/22/16 10:00 Constitutional: Yes: No Distress, Calm Neck: Yes: Supple Respiratory: Yes: Regular, Diminished Gastrointestinal: Yes: Normal Bowel Sounds, Soft Cardiovascular: Yes: Regular Rate and Rhythm JVD: No Carotid Bruit: No Heart Sounds: Yes: S1, S2 Edema: No - Other Data Labs, Other Data: CBC, BMP 05/22/16 05:35 05/21/16 06:00 NSR Echo: Report Reviewed Ejection Fraction %: LVEF > or = 40 % Imaging - Results Chest X-ray: Report Reviewed (Bilateral effusions) MRI: Report Reviewed (Brain mets) EKG: Report Reviewed (ST) Problem List - Problems (1) Breast CA Code(s): C50.919 - MALIGNANT NEOPLASM OF UNSP SITE OF UNSPECIFIED FEMALE BREAST Qualifiers: Laterality: unspecified laterality (2) Diabetes Code(s): E11.9 - TYPE 2 DIABETES MELLITUS WITHOUT COMPLICATIONS Qualifiers: Diabetes mellitus type: type 2 (3) Pleural effusion Code(s): J90 - PLEURAL EFFUSION, NOT ELSEWHERE CLASSIFIED (4) Shortness of breath Code(s): R06.02 - SHORTNESS OF BREATH (5) Syncope Code(s): R55 - SYNCOPE AND COLLAPSE Qualifiers: Syncope type: vasovagal syncope Qualified Code(s): R55 - Syncope and collapse (6) Pericardial effusion without cardiac tamponade Code(s): I31.3 - PERICARDIAL EFFUSION (NONINFLAMMATORY) (7) Neutropenia Code(s): D70.9 - NEUTROPENIA, UNSPECIFIED Qualifiers: Neutropenia type: secondary to cancer chemotherapy Qualified Code(s) : D70.1 - Agranulocytosis secondary to cancer chemotherapy Assessment/Plan 05/19/2016 Echo: Normal LV size and fxn, mild MR, small effusion 1. Post vasovagal syncope 2. Acute hypoxic respiratory failure 3. Pleural and pericardial effusion s/p left Pleurx and pericardial drainage 4. H/o metastatic breast ca post resection, chemotx/RT, gamma knife brain lesions 5. DM 6. Neutropenia referable to Ibrance P:1. No indication to drain pericardium at this time 2. Empiric abx course, monitor ANC 3. O2, BD, IS, Letrozole/Ibrance dosing per onc 4. Thank you for consultative opportunity
--- NOTE | 2016-05-22 16:37 | PN ---
Progress Note (short form) - Note Progress Note: Patient seen and examined No specific complaints On letrozole and ibrance Falling WBC count. Today is day 11 of 21/28 day cycle of ibrance. Common side effect is neutropenia and current ANC < 1000.(Grade 3 toxicity) Will need to hold Ibrance until ANC >1000 Letrozole should be continued daily for full 28 day cycle, independent of CBC and WBC count. If Ibrance takes longer than 7 days to recover ANC, next cycle will require a dose adjustment. Last Vital Signs Temp Pulse Resp BP Pulse Ox 97.4 F L 104 H 18 106/70 92 L 05/22/16 14:25 05/22/16 14:25 05/22/16 14:25 05/22/16 14:25 05/22/16 10:00 HEENT: VICKY, EOM Intact Oropharynx: No thrush, No mucositis Cor: RSR, No murmurs, No gallops Lungs: Clear to P&A Abd: Soft, Normal bowel sounds, No organomegaly Ext:No significant edema Skin: No rashes, Integument intact CBC, BMP 05/22/16 05:35 05/21/16 06:00 Abnormal Lab Results 05/22/16 05:35 WBC 1.8 L RBC 3.22 L MCV 103.3 H RDW 16.8 H Impression: Metastatic breast ca Rx-- Letrozole and Ibrance Neutropenia secondary to Ibrance Grade 3 toxicity with ANC< 1000 Protocol calls for with-holding Ibrance until ANC> 1000. If it takes longer than 7 days, dose adjustment of next cycle Continue Letrozole daily at 2.5 mg. Above discussed with patient.
--- NOTE | 2016-05-22 17:39 | PN ---
Progress Note (short form) - Note Progress Note: Radiation Oncology (full consult dictated) 46yo known to our dept tx'd with GKS in 08/2015 for multiple small brain mets. Admitted w syncopal episode vs seizure, MRI shows multiple enahncing foci with edema. Will need to review/compare with previous post GKS brain scans (done at [facility]) to determine if there has been any progression of intracranial mets. Typically WBRT would be considered following GKS. Additional GKS may also be considered for limited progression. Discussed w pt who will followup as outpatient.
[2016-05-22] MEDS: PIPERACILLIN/TAZOB 3.375 GM 50 ML IVPB SCH (17:53)
--- NOTE | 2016-05-22 18:53 | CONS ---
DATE OF CONSULTATION: 05/22/2016 REFERRING PHYSICIAN: David Cuba M.D. REASON FOR CONSULTATION: Brain metastases. HISTORY OF PRESENT ILLNESS: The patient is a 46-year-old woman with a history of bilateral breast cancer status post right mastectomy, left lumpectomy, postoperative radiation therapy bilaterally, chemotherapy, and hormonal therapy in 2007 and 2011. In 2015 she presented with recurrent disease associated with malignant and pleural effusion and multiple brain metastases. She completed gamma knife treatment for 10 metastases in Aug, 2015. She had reportedly a good response on interval imaging at [facility]. She has not had followup with me since initial evaluation and referral for gamma knife radiosurgery. She has been maintained on hormonal agents and Ibrance most recently, currently with leukopenia which is being managed. She was admitted for a syncopal episode without head trauma. She denies vertigo , dizziness, lightheadedness at the time of the episode. She does recall noticing a queasy sensation as well as subsequent vomiting following the ambulance ride to the emergency room. She has had no witnessed seizure episodes at the time of the episode, or since the syncopal episode. She denies headache, dizziness, nausea or vomiting at this time. An MRI of the brain on May 21, 2016, demonstrated multiple subcentimeter enhancing foci associated with edema. The largest lesion measures 5 mm. PAST MEDICAL HISTORY: Hypercholesterolemia, gastroesophageal reflux, asthma, diabetes mellitus. Prior radiotherapy history is noted. Prior chemotherapy history is noted. PAST SURGICAL HISTORY: Bilateral breast surgery, section, chemotherapy port, chest tube for effusion. OBSTETRICS/GYNECOLOGY HISTORY: 1 para 1, menarche at 13. Last menstrual period in 2008, parity at age 35. She did not breastfeed or use control pills. ALLERGIES: No known drug allergies. CURRENT MEDICATIONS: Ibrance and Femara, Zosyn, Lovenox, insulin sliding scale, vitamin D. SOCIAL HISTORY: Born in [facility], lives with her and daughter. She was never a smoker and does not consume alcoholic beverages on a regular basis. 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 FAMILY HISTORY: Father had diabetes, mother healthy at age 69. No history of malignancy in her family. REVIEW OF SYSTEMS: As noted above. PHYSICAL EXAMINATION: General: Well appearing female, chemotherapy associated alopecia, in no acute distress. Vital Signs: Temperature 97.4, blood pressure 106/70, pulse 104, respiratory rate 18. HEENT: Moist mucous membranes. Anicteric sclerae. Neck: No neck adenopathy or thyromegaly. Chest: Lungs are clear. Cardiovascular: Regular. Breasts: Right mastectomy incision, healed with fibrosis and residual hyperpigmentation. Left breast without mass or skin change. Abdomen: Soft, nontender. Nondistended. Extremities: No edema. Neurologic: Alert and oriented x3. No dysphagia. Cranial nerves 2-12 are intact. No sensory deficits. Motor 5/5 in all 4 extremities. RADIOLOGIC DATA: MRI of the brain May 21, 2016, as noted above. IMPRESSION: A 46-year-old woman with recurrent breast cancer with brain metastases treated with gamma knife radiosurgery in August 2015. She had followup imaging at [facility]. The current MRI does show multiple small lesions with vasogenic edema. It is unclear if any of these lesions are responsible for her recent vasovagal versus seizure syncopal episode. Whole brain radiation therapy would be considered for progressive disease following radiosurgery. Role of additional gamma knife radiosurgery for limited number of progressive lesions may be considered. Prior brain imaging studies will need to be reviewed and compared to determine how many of these lesions are new and whether existing lesions have progressed. The options were discussed with the patient who plans to followup as outpatient to further consider her options. Thank you for asking me to participate in the care of this patient. DARLING DEAN M.D. [id number] MTDD
[2016-05-23] MEDS: PIPERACILLIN/TAZOB 3.375 GM 50 ML IVPB SCH ×2 (02:44→09:18)
[2016-05-23] MEDS: INSULIN SLIDING SCALE (NOVOLOG) 1 VIAL SQ SCH ×2 (06:23→12:41)
[2016-05-23 07:42] LABS: BASOPHIL 0.8 % (0-2.0); EOSINOPHIL 3.4 % (0-4.5); MCH 34.3 pg (25.7-33.7); MCHC 33.7 g/dl (32.0-36.0); MEAN CELL VOLUME 101.9 fl (80-96); MEAN PLT VOLUME 7.6 fl (7.5-11.1); NEUTROPHILS 53.2 % (42.8-82.8); PLATELET COUNT 370 K/MM3 (134-434); RDW 16.6 % (11.6-15.6)
[2016-05-23 07:47] LABS: WHITE BLOOD COUNT 1.6 K/mm3 (4.0-10.0)
--- NOTE | 2016-05-23 09:59 | PN ---
Progress Note (short form) - Note Progress Note: NEUROSURGERY Family at bedside Admitted with syncopal episode S/p gamma knife for multiple intracranial mets several months ago PE: General- looks well CV- RRR; Lungs- CTA B; Abd- benign; Ext- no sign of DVT NEURO- A/A/Ox4 CN- intact; Motor- 5/5 without drift; Sensation- intact; DTR- 1+ Gait- stable MRI brain- R medial high frontal 5 mm; R posterior occipital 5 mm, and L anterior frontal GW junction 6 mm enhancing lesion with mild edema WBC 1.6; hgb 11.4 Breast CA metastases Responded well to gamma knife previously with almost near complete resolution of 10 lesions Karnosfy's of > 80-90 Care d/w rad onc and pt; will coordinate with med onc Would consider further gamma knife boosts vs whole brain XRT; pros and cons discussed; potential risks and benefits explained Pt to decide ultimately D/w Dr Palafox
[2016-05-23] MEDS: LETROZOLE 2.5 MG TABLET (FP) PO SCH (10:00)
[2016-05-23] MEDS: CHOLECALCIFEROL (VITAMIN D3) 400 UNIT TABLET (FP) PO SCH (10:00)
[2016-05-23] MEDS ORDERED: PALBOCICLIB 125 MG PO SCH (10:00)
[2016-05-23] MEDS: ENOXAPARIN NA (PORCINE) 40 MG/0.4 ML DISP.SYRIN SQ SCH (10:00)
[2016-05-23] MEDS ORDERED: LETROZOLE PO SCH (10:00)
--- NOTE | 2016-05-23 10:35 | PN ---
Progress Note, Physician History of Present Illness: pulmonary alert,nad,-sob,-headaches. - Current Medication List Current Medications: Active Medications Cholecalciferol (Vitamin D3 -) 400 unit PO DAILY [facility] Last Admin: 05/22/16 09:24 Dose: Not Given Enoxaparin Sodium (Lovenox -) 40 mg SQ DAILY [facility] Last Admin: 05/22/16 09:23 Dose: Not Given Piperacillin Sod/Tazobactam Sod (Zosyn 3.375gm Ivpb (Pre-Docked)) 50 mls @ 100 mls/hr IVPB Q8H-IV WILY PRN Reason: Protocol Last Admin: 05/23/16 09:18 Dose: 100 mls/hr Insulin Aspart (Novolog Vial Sliding Scale -) 1 vial SQ ACHS [facility]ILY PRN Reason: Protocol Last Admin: 05/23/16 06:23 Dose: Not Given Letrozole (Femara -) 2.5 mg PO DAILY [facility] Last Admin: 05/22/16 09:23 Dose: Not Given Non-Formulary Medication (Patient's Own Med) 1 each PO DAILY [facility] Non-Formulary Medication (Palbociclib [Ibrance]) 125 mg PO DAILY [facility] - Objective Vital Signs: Vital Signs Temperature 97.3 F L 05/23/16 01:00 Pulse Rate 99 H 05/23/16 05:00 Respiratory Rate 20 05/23/16 05:00 Blood Pressure 90/59 05/23/16 05:00 O2 Sat by Pulse Oximetry (%) 93 L 05/22/16 20:19 Constitutional: Yes: Well Nourished, Calm Eyes: Yes: WNL HENT: Yes: WNL Neck: Yes: WNL Cardiovascular: Yes: Regular Rate and Rhythm, S1, S2 Respiratory: Yes: Diminished Gastrointestinal: Yes: WNL Extremities: Yes: WNL Edema: No Labs: CBC, BMP 05/23/16 06:00 Problem List - Problems (1) Breast CA Code(s): C50.919 - MALIGNANT NEOPLASM OF UNSP SITE OF UNSPECIFIED FEMALE BREAST Qualifiers: Laterality: unspecified laterality (2) Pleural effusion Code(s): J90 - PLEURAL EFFUSION, NOT ELSEWHERE CLASSIFIED (3) Hypoxemia Code(s): R09.02 - HYPOXEMIA (4) Shortness of breath Code(s): R06.02 - SHORTNESS OF BREATH (5) Diabetes Code(s): E11.9 - TYPE 2 DIABETES MELLITUS WITHOUT COMPLICATIONS Qualifiers: Diabetes mellitus type: type 2 Assessment/Plan Assessment/Plan RIGHT BREAST CA DXED 2008 S/P MASTECTOMY, CHEMOTX/RT LEFT BREAST CA DXED 2011 S/P LUMPECTOMY,CHEMOTX/RT LEFT BREAST RECURRENCE 2016 WITH PLEURAL/PERICARDIAL EFFUSION/BRAIN METS WITH CERVICAL NODE INVOLVEMENT S/P LEFT PLEUREX PLACED ON LETROZOLE/IBRANCE H/O DM ON METFORMIN ? SYNCOPE HYPONATREMIA IMPROVED B/L PLEURAL EFFUSIONS AND EXTENSIVE INFILTRATE WITH AIR-BRONCHOGRAMS ON RIGHT WITH ELEVATED TYLER DIAPHRAGM NEUTROPENIA O2 SUPPLEMENTATION ANTIBIOTICS PER ID BRONCHODILATORS GLYCEMIC CONTROL INCENTIVE SPIROMETRY MONITOR LYTES,CBC PER ONCOLOGY RT CHEST X-RAY TODAY DR MARIA
--- NOTE | 2016-05-23 12:06 | PN ---
Progress Note (short form) - Note Progress Note: Progress Note (short form) - Note Progress Note: Patient seen and examined No specific complaints, wants to go home On letrozole and ibrance Falling WBC count. Today is day 12 of 21/28 day cycle of ibrance. Common side effect is neutropenia and current ANC < 1000.(Grade 3 toxicity) Will need to hold Ibrance until ANC >1000 Letrozole should be continued daily for full 28 day cycle, independent of CBC and WBC count. If Ibrance takes longer than 7 days to recover ANC, next cycle will require a dose adjustment. Vital Signs Period Temp Pulse Resp BP Sys/Siddiqui Pulse Ox Last 24 Hr 97.3 F-98.4 F 99-111 18-20 90-107/59-71 93 HEENT: VICKY, EOM Intact Oropharynx: No thrush, No mucositis Cor: RSR, No murmurs, No gallops Lungs: Clear to P&A Abd: Soft, Normal bowel sounds, No organomegaly Ext:No significant edema Skin: No rashes, Integument intact CBC, BMP 05/23/16 06:00 05/21/16 06:00 Impression: Metastatic breast ca Rx-- Letrozole and Ibrance Neutropenia secondary to Ibrance Grade 3 toxicity with ANC< 1000 Protocol calls for with-holding Ibrance until ANC> 1000. If it takes longer than 7 days, dose adjustment of next cycle Continue Letrozole daily at 2.5 mg. she wants to go home and can go home if cleared form a cardiac standpoint and will followup with She wants to discuss about WBRT vs sterotactic with and then make a decision.
--- NOTE | 2016-05-23 13:18 | PN ---
Progress Note (short form) - Note Progress Note: Chief Complaint: Events noted, notes reviewed, denies any chest pain or dyspnea , no further syncope reported History of Present Illness: Seen and examined on telemetry. Events noted, notes reviewed, denies any chest pain or dyspnea, no further syncope reported Echocardiography performed 05/19/2016 revealed Normal LV size and function, mild MR, small pericardial effusion Medications: Current Medications Cholecalciferol (Vitamin D3 -) 400 unit PO DAILY [facility] Last Admin: 05/23/16 10:00 Dose: Not Given Enoxaparin Sodium (Lovenox -) 40 mg SQ DAILY [facility] Last Admin: 05/23/16 10:00 Dose: Not Given Piperacillin Sod/Tazobactam Sod (Zosyn 3.375gm Ivpb (Pre-Docked)) 50 mls @ 100 mls/hr IVPB Q8H-IV WILY PRN Reason: Protocol Last Admin: 05/23/16 09:18 Dose: 100 mls/hr Insulin Aspart (Novolog Vial Sliding Scale -) 1 vial SQ ACHS [facility] PRN Reason: Protocol Last Admin: 05/23/16 12:41 Dose: Not Given Letrozole (Femara -) 2.5 mg PO DAILY [facility] Last Admin: 05/23/16 10:00 Dose: Not Given Non-Formulary Medication (Palbociclib [Ibrance]) 125 mg PO DAILY [facility] Vital Signs: Last Vital Signs Temp Pulse Resp BP Pulse Ox 97.3 F L 99 H 20 90/59 93 L 05/23/16 01:00 05/23/16 05:00 05/23/16 05:00 05/23/16 05:00 05/22/16 20:19 Constitutional: No Distress, Calm Neck: Supple Negative JVD No Bruit Respiratory: Diminished Breath Sounds at the Bases Cardiovascular: S1 S2 Regular Rate and Rhythm No Murmurs Gastrointestinal: Soft Benign Normal Bowel Sounds Ext: No Edema Labs: CBC, BMP 05/23/16 06:00 05/21/16 06:00 Assessment/Plan ASSESSMENT: 1. Post vaso-vagal syncope 2. Acute hypoxic respiratory failure, possible pneumonia 3. Pericardial effusion post pericardial drainage, small amount of residual effusion 4. Pleural effusion post left Pleurx 5. History of metastatic breast carcinoma post resection, chemo-therapy/ radiation therapy, post gamma knife for brain lesions 6. DM PLAN: 1. No indication at this point for repeat pericardial drainage 2. Recommend repeat echocardiography in 4-6 weeks 3. Antibiotics as per the primary team Discussed in detail with the patient and her who was at the bedside Napoleon Cardoza MD
[2016-05-23 13:38] VITALS: PULSE 114
[2016-05-23 14:17] VITALS: BP 101/70; TEMP 97.8
--- NOTE | 2016-05-23 15:03 | DS ---
Physical Examination Vital Signs: Vital Signs Temperature 97.8 F 05/23/16 09:00 Pulse Rate 114 H 05/23/16 13:36 Respiratory Rate 18 05/23/16 09:00 Blood Pressure 101/70 05/23/16 09:00 O2 Sat by Pulse Oximetry (%) 94 L 05/23/16 13:36 Findings/Remarks: denies any CP or SOB , no CP . did not sleep well last night . OBJECTIVE: NAD , AAOX3 CV: RRR, no MRG Lungs: decreased breath sounds at R base . L chest tube in pace . Ext: No edema over b/l LE Constitutional: Yes: Well Nourished Labs: CBC, BMP 05/23/16 06:00 05/21/16 06:00 Discharge Summary Reason For Visit: PLEURAL EFFUSION HYPOXIA PERICARDIAL EFF Current Active Problems Neutropenia (Acute) Syncope (Acute) Breast CA (Chronic) Diabetes (Chronic) Pericardial effusion without cardiac tamponade (Chronic) Pleural effusion (Chronic) Hospital Course: Dc Diagnosis : 1- Transient hypoxia . resolved 2- Neutropenia due to chemotherapy 3- Syncope , likely vasovagal Hospital course : 46 y/o lady with h/o DM , breast cancer s/p R mastectomy , L lumpectomy ,brain mets s/p gamma knife , recurrent pleural effusions s/p L chest tube, and pericardial effusion ,who presented with syncopal episode after having nausea , and vomited while getting in bed . LOC was brief and there was no witnessed seizure like activity . AT presentation CT head was remarkable for abnormalities in the katelyn- ventricular area . Cxray showed pleural effusions . Ct chest showed b/l pleural effusions and areas of infiltrate /atelectasis in both lung platt. WBC of 4.3 K . She was tachycardic in 120s Her syncope was thought to be due to vasovagal syncope , but due to her history of metastatic breast cancer a big Met in brain needed to be excluded . MRI was done to show b/l cerebral small mets , the largest measuring 8 mm in R frontal lobe. she was kept on tele which did not catch any arrhythmias . echo was done and showed mild pericardial effusion on Dr. Maynard review of the images ( this is stable from before as per d/w oncology fellow at [facility] ) . Initially she had tachycardia of 100-120s . with pulsus paradoxus of 12 but echo showed no signs fo tamponade and clinically she had no JVD or hypotension ( BP runs low 100s ) . she was seen by card . SHe was seen by ONc and neuro Sx Dr. Cuba who folows her as an out pt . further discussion with out pt onc and radiation onc in [facility] is to be done to decide on whole brain radiation Vs Gamma knife treatment fro the brain lesions . HE Ibrance was held due to worsening leukopenia and neutropenia ( ANC 848 today , WBC 1.4 ) . she will cont letrozol and have repeat CBC as out pt to decide when to resume chemo Although she had changes on CT scan , she did not show clinical signs of PNA . ( changes might be fibrosis due to radiation) . she was not placed on ABx initially. Blood cx were sent , still neg x 48 hrs. UA was clean . she was given 24 hr of zosyn when she developed neutropenia. Dispo : Dc home today Condition improved and stable Time spent 45 min Condition: Improved - Instructions Diet, Activity, Other Instructions: - please follow with your oncologist at [facility]. - please follow with Dr. Cuba. Need to coordinate with your oncologist and radiation oncologist fro further plan of brain metastasis - keep Ibrance on hold until you follow with Oncologist, as your count need to be up before resuming - you need blood work in 1 week . fax to your oncologist - call MD with any concerns Referrals: Yao Nelson [Primary Care Provider] - 1 Week David Cuba MD [Staff Physician] - 1 Week Disposition: HOME - Home Medications Comprehensive Discharge Medication List: Ambulatory Orders Anastrozole [Arimidex -] 1 mg PO DAILY 08/24/12 Cholecalciferol (Vitamin D3) [Vitamin D3] 2,000 unit PO DAILY 11/07/12 Metformin HCl [Glucophage] 500 mg PO DAILY 11/07/12 Letrozole [Femara -] 2.5 mg PO DAILY 05/22/16 Miscellaneous Medical Supply [Outpatient Order] 1 [facility] [place] is new to me today: No Emergency Visit: Yes ED Registration Date: 05/20/16 Care time: The patient presented to the Emergency Department on the above date and was hospitalized for further evaluation of their emergent condition. Critical Care patient: No - Discharge Referral Referred to [facility] Med P.C.: No
--- NOTE | 2016-05-23 16:16 | PN ---
Progress Note, Physician History of Present Illness: stable no issues wbc still trending down patient asymptomatic - Current Medication List Current Medications: Active Medications Cholecalciferol (Vitamin D3 -) 400 unit PO DAILY [facility] Last Admin: 05/23/16 10:00 Dose: Not Given Enoxaparin Sodium (Lovenox -) 40 mg SQ DAILY [facility] Last Admin: 05/23/16 10:00 Dose: Not Given Piperacillin Sod/Tazobactam Sod (Zosyn 3.375gm Ivpb (Pre-Docked)) 50 mls @ 100 mls/hr IVPB Q8H-IV [facility] PRN Reason: Protocol Last Admin: 05/23/16 09:18 Dose: 100 mls/hr Insulin Aspart (Novolog Vial Sliding Scale -) 1 vial SQ ACHS [facility] PRN Reason: Protocol Last Admin: 05/23/16 12:41 Dose: Not Given Letrozole (Femara -) 2.5 mg PO DAILY [facility] Last Admin: 05/23/16 10:00 Dose: Not Given Non-Formulary Medication (Palbociclib [Ibrance]) 125 mg PO DAILY [facility] - Objective Vital Signs: Vital Signs Temperature 97.8 F 05/23/16 09:00 Pulse Rate 114 H 05/23/16 13:36 Respiratory Rate 18 05/23/16 09:00 Blood Pressure 101/70 05/23/16 09:00 O2 Sat by Pulse Oximetry (%) 94 L 05/23/16 13:36 Constitutional: Yes: No Distress, Calm Cardiovascular: Yes: Regular Rate and Rhythm Respiratory: Yes: Regular, CTA Bilaterally Gastrointestinal: Yes: Normal Bowel Sounds, Soft Musculoskeletal: Yes: WNL Extremities: Yes: WNL Neurological: Yes: Alert, Oriented Psychiatric: Yes: Alert, Oriented Labs: CBC, BMP 05/23/16 06:00 05/21/16 06:00 Assessment/Plan # Vasovagal syncope # Hypoxic respiratory failure Pleural effusion and pericardial effusion. Has h/o Metastatic breast cancer-s/p lumpectomy and mastectomy # Diabetes Mellitus neutropenia lung infiltrate plan stopped abx if patient spikes temp then she has to go back on abx
== END 2016-05-23 18:46 | disposition home or self-care (01) | DRG 186 ==
LOC: JER 19:12 → JERBED 05-20 05:10 → UNDOADMIN 05-20 05:33 → J4W 05-20 17:07
PROVIDERS: ADMIT Internal Medicine; ATTEND Internal Medicine
DX: J90 Pleural effusion, not elsewhere classified (principal); J96.01 Acute respiratory failure with hypoxia; D61.810 Antineoplastic chemotherapy induced pancytopenia; J98.11 Atelectasis; C79.31 Secondary malignant neoplasm of brain; I31.3 Pericardial effusion (noninflammatory); E87.1 Hypo-osmolality and hyponatremia; R55 Syncope and collapse; E11.65 Type 2 diabetes mellitus with hyperglycemia; R00.0 Tachycardia, unspecified; C50.919 Malignant neoplasm of unspecified site of unspecified female breast; Z99.81 Dependence on supplemental oxygen; D70.1 Agranulocytosis secondary to cancer chemotherapy
CPT/HCPCS: 36415; 36600; 70450-TC; 70553-TC; 71010-TC; 71250-TC; 80048; 80053; 81003; 82375; 82803; 83036; 83050; 83735; 84100; 85025; 87040; 87254; 87804; 93005; 93010; 93306-TC; 93880-TC; 93971-TC; 94010; 94761; 99284-25